=== PATIENT | female | born 2000 | race Two or more races ===

== ENCOUNTER 2024-07-12 14:55 | Outpatient (AMB) | payer MEDICAID, SELFPAY ==
[2024-07-12 15:13] VITALS: BP 105/69; PULSE 84; RESP 16; TEMP 36.7; O2SAT 98; BMI 25.3
--- NOTE | 2024-07-12 15:13 | OBCLNT_ITS ---
Vital Signs 07/12/24 15:13 Height 1.55 m Height Method Stated Weight 60.895 kg Weight Measurement Method Standing Scale BMI 25.3 BP 105/69 Blood Pressure Source Automatic Cuff Blood Pressure Location Left Upper Arm Position Left Lateral Respiration 16 Pulse 84 Pulse Source Monitor Temp 98.1 F Temp Source Oral Pulse Oximetry (%) 98 Oxygen Delivery Method Room Air Allergies/Home Meds Allergies & Medications Allergies No Known Allergies Allergy (Verified 07/12/24 15:15) Medication Reconciliation No Known Home Medications 07/12/24 [History Confirmed 07/12/24] Intake Visit Data Collection New Patient or Established: Established Patient (seen at [facility] within 3 years) Reason for Visit:: care Seen by Clinical Staff ONLY (RN/MA): No Production Superintendent Required: No Do You Feel Safe at Home: Yes Authorities Contacted: N/A PCP or OBGYN visit in last 3 months: Yes Hx Now: Yes Are you currently on any form of Control: No Last menstrual period: 03/23/24 Pain Present Currently: No Pain Scale Used: Styles-Quispe/Numerical Pain scale:: 0 Smoking Status Smoking Status: Never smoker Questionnaires Covid-19 Vaccine Questionnaire Has patient been vacinated for Covid-19 Have you been vacinated for Covid-19: No PHQ-9 PHQ-2 Over the last 2 weeks, how often have you been bothered by any of the following problems? 1. Little interest or pleasure in doing things: not at all 2. Feeling down, depressed, or hopeless: not at all Total score: 0 PHQ-9 3. Trouble falling or staying asleep, or sleeping too much: Not at all 4. Feeling tired or having little energy: Not at all 5. Poor appetite or overeating: Not at all 6. Feeling bad about yourself - or that you are a failure or have let yourself or your family down: Not at all 7. Trouble concentrating on things, such as reading the newspaper or watching television: Not at all 8. Moving or speaking so slowly that other people could have noticed? - Or the opposite - being so fidgety or restless that you have been moving around a lot more than usual: not at all 9. Thoughts that you would be better off or of hurting yourself in some way: Not at all Total score: 0 Source: Developed by Drs. Tylor Pitt, Brigitte Schaeffer, Leonides Norris and colleagues, with an educational glenn from [employer]. Depression screen completed yes Social History Living Situation History Marital Status: Single Lives With: Family Housing: House Housing Other:: Pt not working this pregnanxy. FOB named Jas is a electronics mechanic Tobacco History Smoking Status: Never smoker Second Hand Smoke Exposure: No Alcohol History Alcohol Intake: Never Substance Use History Substance Use: no Domestic Abuse History Do You Feel Safe at Home: Yes Past Medical History Past Medical History Have you ever been diagnosed with any of the following: Neurological Problems Meningitis: No Seizures: No Guillain-Hamlin Syndrome: No Migraine: No Cardiology Problems Cardiac Arrhythmia: No Heart Murmur: No Edema: No Hypertension: No Respiratory Problems Chronic Obstructive Pulmonary Disease (COPD): No Asthma: Yes (todays visit) Bronchitis: Yes (admitted to the hospital x 4 days last year. Possible valley fever.) Pneumonia: No Sleep Apnea: No CPAP Dependent: No Stomache/Intestinal Problems Gall Bladder Disease: No Irritable Bowel: No Gastroesophageal Reflux Disease: No Obesity: No Genital/Urinary Problems Renal Disease: No Kidney Stones: No Reproductive Problems Breast Cancer: No Endometriosis: No Fibroids: No Genital Herpes: No Gonorrhea: No Pelvic Inflammatory Disease: No Polycystic Ovarian Syndrome: No Previous Pregnancies: No Syphilis: No Musculoskeletal Problems Arthritis: No Rheumatoid Arthritis: No Degenerative Disk Disease: No Scoliosis: No Carpal Tunnel Syndrome: No Fibromyalgia: No Endocrine Problems Diabetes Mellitus Type 2: No Hyperthyroidism: No Hypothyroidism: No Systemic Lupus Erythematosus: No Blood Problems Anemia: No Psychologic Problems Depression: No Anxiety: No Attention Deficit Hyperactivity Disorder: No Other Problems Hospitalization: Yes (four days for bronchitis) Autoimmune Disease: No Blood Transfusions: No Anesthesia Reactions: No History of Present Illness HPI Narrative Pt is a 24 y/o at 16 weeks by LMP presents to establish care, She had PNC labs done at [facility] OB Initial Visit Menstrual History Menstrual reliability: definite Flow: normal Menstrual regularity: regular Monthly: Yes Age at menarche: 11 On control pills at conception: No Date of positive home test: 05/02/24 Associated symptoms (LMP): Reports nausea, vomiting, fatigue and irritability OB History : 1 Para: 0 # of Living Children: 0 Infection History & Risk Evaluation History of STDs: none Patient or partner has history of Genital Herpes: No Varicella/chicken pox status: immunized Genetic Screening & History Genetic Screening/Teratology Counseling - Includes patient, baby's father, or anyone in either family with: 1. Patient's age 35 years or older as of estimated date of delivery: No 2. Thalassemia (Yakut, Scottish, Mediterranean, or Background); MCV less than 80: No 3. Neural Tube Defect (Meningomyelocele, Spina Bifida, or Anencephaly): No 4. Congenital Heart Defect: No 5. Down Syndrome: No 6. Conrado-Sachs (Ashkenazi Sabianist, Cajun, Slovenian Delta): No 7. Danii Disease (Ashkenazi Sabianist): No 8. Familial Dysautonomia (Ashkenazi Sabianist): No 9. Sickle Cell Disease or Trait (): No 10. Hemophilia or other blood disorders: No 11. Muscular Dystrophy: No 12. Cystic Fibrosis: No 13. Guadalupe's Chorea: No 14. Mental Retardation/Autism: No 15. Other inherited genetic or chromosomal disorder: No 16. Maternal Metabolic Disorder (EG,TYPE 1 Diabetes, PKU): No 17. Patient or baby's father had a child with defects not listed above: No 18. Recurrent loss or a stillbirth: No 19. Medications (including supplements, vitamins, herbs or otc drugs)/illicit/recreational drugs/alcohol since last menstrual period: No 20. Any other: No Infection History 1. Live with someone with TB or exposed to TB: No 2. Rash or viral illness since last menstrual period: No 3. Hepatitis B,C: No Other (see comments) Source: [employer] OB Flowsheet OB Flowsheet Initial Weight: Not Recorded Date -?-?-?-?-?-?-?-?-?-?-?-?- EGA Weight Edema CTX Effacement BP Fundal ht Pres Dilation Effacement Station Visit Note Alb Glu FHR Mov 07/12/24 -?-?-?-?-?-?-?-?-?-?-?-?- 15w 5d 60.895 kg 105/69 140 active Review of Systems Constitutional Constitutional: Reports system reviewed and no additional complaints, except as documented, Reports fatigue and Reports malaise Gastrointestinal Gastrointestinal: Reports nausea and Reports vomiting Psychiatric Psychiatric: Reports irritability Endocrine Endocrine: Reports fatigue Exam General Limitations: no limitations General Appearance: alert, in no apparent distress, comfortable, cooperative, healthy appearing, well developed and well groomed Head Head exam: atraumatic, normocephalic and normal inspection Neck Neck exam: Present normal inspection, full ROM and trachea midline Chest Chest inspection: Present normal inspection and symmetric chest wall rise Resp Respiratory exam: Present normal lung sounds bilaterally Card Cardiovascular exam: Present regular rate, normal rhythm and normal heart sounds Abdominal Abdominal exam: Present soft and normal bowel sounds Bimanual exam: Present normal bimanual exam, uterine enlargement (16 week size) and other (adequate pelvic outlet) Exp External exam: Present normal Extremities Extremities exam: Present normal inspection and full ROM Psych Psychiatric exam: Present normal affect and normal mood Skin Skin exam: Present warm, dry, intact and normal color Assessment & Plan Diagnosis / Problem List (1) : Status: Acute Additional Plan Follow Up: 4 Weeks Office Procedures OB Clinic LOC & Office Proc's Nursing/Assessment Patient Status: Established Patient OB Clinic Nursing Assessment: Medication Reconciliation, Update PMH in EMR and Vital Signs OB Clinic Coordination of Care: Complex Care and Chronic Disease 1-5, Consent,records obtained, informed consent, Education Simp Pt/Fam, Lab and Imaging orders and Results/Orders obtained Special Needs: Heart tones Miscellaneous Interventions: Pelvic/Pap Smear Set up Established Patient Charge Established Patient Point Assignment: 145 Established Patient Point Charge: EP Level 4 (120-155) OB Ultrasound OB Ultrasound Indication(s):: dating/viability Ultrasound technique:: transabdominal Embryo/ Assessment 1: Cardiac activity confirmation:: Yes Amniotic fluid assessment:: WNL Head Circumference (cm):: 11 CLINICAL VETERINARIAN: Papsmear Pap Smear Procedure Chaparone in room during procedure?: No Pre-op diagnosis general: , needs annual pap smear Post-op diagnosis procedure note: Same Procedure Notes:: Pap done Papsmear completed: yes
== END 2024-07-12 16:25 | disposition home or self-care (01) ==
LOC: HODSOBC 14:55
PROVIDERS: Supervising Provider Obstetrics & Gynecology; Visit Provider Obstetrics & Gynecology
DX: Z34.02 Encounter for supervision of normal first pregnancy, second trimester (principal); Z3A.15 15 weeks gestation of pregnancy
CPT/HCPCS: 76801; 99214; Q0091; G0463

== ENCOUNTER 2024-08-14 09:54 | Outpatient (AMB) | payer MEDICAID, SELFPAY ==
[2024-08-14 10:26] VITALS: BP 103/66; PULSE 96; RESP 16; TEMP 36.2; O2SAT 99; BMI 26.1
--- NOTE | 2024-08-14 10:26 | AMB.OBVISIT ---
Vital Signs 08/14/24 10:26 Height 1.55 m Height Method Stated Weight 62.823 kg Weight Measurement Method Standing Scale BMI 26.1 BP 103/66 Blood Pressure Source Automatic Cuff Blood Pressure Location Left Upper Arm Position Sitting Respiration 16 Pulse 96 Pulse Source Monitor Temp 97.2 F Temp Source Oral Pulse Oximetry (%) 99 Oxygen Delivery Method Room Air Allergies/Home Meds Allergies & Medications Allergies No Known Allergies Allergy (Verified 08/14/24 10:29) Medication Reconciliation No Known Home Medications 07/12/24 [History Confirmed 08/14/24] Intake Visit Data Collection New Patient or Established: Established Patient (seen at [facility] within 3 years) Reason for Visit:: Return OB visit Seen by Clinical Staff ONLY (RN/MA): No Manager Change Required: No Do You Feel Safe at Home: Yes Authorities Contacted: N/A PCP or OBGYN visit in last 3 months: Yes Date of Last PCP or OBGYN visit: 07/12/24 Hx Now: Yes Are you currently on any form of Control: No Pain Present Currently: No Pain Scale Used: Styles-Quispe/Numerical Pain scale:: 0 Smoking Status Smoking Status: Never smoker Questionnaires Covid-19 Vaccine Questionnaire Has patient been vacinated for Covid-19 Have you been vacinated for Covid-19: Yes PHQ-9 PHQ-2 Over the last 2 weeks, how often have you been bothered by any of the following problems? 1. Little interest or pleasure in doing things: not at all 2. Feeling down, depressed, or hopeless: not at all Total score: 0 PHQ-9 3. Trouble falling or staying asleep, or sleeping too much: Not at all 4. Feeling tired or having little energy: Not at all 5. Poor appetite or overeating: Not at all 6. Feeling bad about yourself - or that you are a failure or have let yourself or your family down: Not at all 7. Trouble concentrating on things, such as reading the newspaper or watching television: Not at all 8. Moving or speaking so slowly that other people could have noticed? - Or the opposite - being so fidgety or restless that you have been moving around a lot more than usual: not at all 9. Thoughts that you would be better off or of hurting yourself in some way: Not at all Total score: 0 If you checked off any problems, how difficult have these problems made it for you to do your work, take care of things at home, or get along with other people?: not difficult at all Source: Developed by Drs. Tylor Pitt, Brigitte Schaeffer, Leonides Norris and colleagues, with an educational glenn from [employer]. Depression screen completed yes Social History Living Situation History Marital Status: Lives With: Family Housing: House Housing Other:: Pt not working this pregnanxy. FOB named Jas is a amusement machine mechanic Tobacco History Smoking Status: Never smoker Second Hand Smoke Exposure: No Alcohol History Alcohol Intake: Never Substance Use History Substance Use: no Domestic Abuse History Do You Feel Safe at Home: Yes Past Medical History Past Medical History Have you ever been diagnosed with any of the following: Neurological Problems Cerebrovascular Accident (CVA): No Transient Ischemic Attacks (TIA): No Meningitis: No Seizures: No Guillain-[place] Syndrome: No Migraine: No Cardiology Problems Myocardial Infarction: No Cardiac Arrhythmia: No Atrial Fibrillation: No Heart Murmur: No Congestive Heart Failure: No Edema: No Hypertension: No Respiratory Problems Chronic Obstructive Pulmonary Disease (COPD): No Asthma: Yes (todays visit) Bronchitis: Yes (admitted to the hospital x 4 days last year. Possible valley fever.) Pneumonia: No Sleep Apnea: No CPAP Dependent: No Stomache/Intestinal Problems Gall Bladder Disease: No Irritable Bowel: No Gastroesophageal Reflux Disease: No Obesity: No Genital/Urinary Problems Renal Disease: No Kidney Stones: No Reproductive Problems Breast Cancer: No Endometriosis: No Fibroids: No Genital Herpes: No Gonorrhea: No Pelvic Inflammatory Disease: No Polycystic Ovarian Syndrome: No Previous Pregnancies: No Syphilis: No Musculoskeletal Problems Muscular Dystrophy: No Myasthenia Gravis: No Marfan's Syndrome: No Bone Cancer: No Arthritis: No Rheumatoid Arthritis: No Degenerative Disk Disease: No Scoliosis: No Carpal Tunnel Syndrome: No Fibromyalgia: No Endocrine Problems Diabetes Mellitus Type 1: No Diabetes Mellitus Type 2: No Hypoglycemia: No Sanford's Syndrome: No [place]'s Disease: No Hyperthyroidism: No Hypothyroidism: No Thyroid Cancer: No Parathyroid Disease: No Pituitary Disease: No Systemic Lupus Erythematosus: No Syndrome of Inappropriate Antidiuretic Hormone: No Adrenal Disease: No Graves' Disease: No Blood Problems Anemia: No Leukemia: No Sickle Cell Disease: No Psychologic Problems Depression: No Anxiety: No Attention Deficit Hyperactivity Disorder: No Other Problems Hospitalization: Yes (four days for bronchitis) Down Syndrome: No Autism: No Developmental Delay: No Cosmetic Surgery: No Shingles: No Falls: No Blood Transfusions: No Blood Transfusion Reaction: No Anesthesia Reactions: No History of Present Illness HPI Narrative The patient is a 24-year-old G1, P0 presents for routine OB visit she is approximately 20 weeks and has no complaints specifically no bleeding no cramping no movement yet. Patient does not work outside the home. Review of Systems Review of Systems Narrative Review of Systems: No nausea no vomiting no movement yet no cramping no bleeding no loss of fluids Visit KEITH Calculator Estimated Delivery Date Method Current WG Current Estimate 12/29/24 Ultrasound #1 20w 3d Other Estimates 12/28/24 LMP (Uncertain) 20w 4d Specific Issue/Plans labs and NIPT results reviewed with the patient's. NIPT normal XX female. Structural survey ultrasound ordered. Initial Weight: Not Recorded Date <del>?</del> EGA Weight Edema CTX Effacement BP Fundal ht Pres Dilation Effacement Station Visit Note Alb Glu FHR Mov 07/12/24 <del>?</del> 15w 5d 60.895 kg 105/69 140 active 08/14/24 <del>?</del> 20w 3d 62.823 kg 103/66 22 135 active Assessment & Plan Diagnosis / Problem List (1) : Status: Acute Qualifiers: Weeks of gestation: 21 weeks Qualified Code(s): Z3A.21 - 21 weeks gestation of Plan: Labs reviewed. NIPT reviewed. Will schedule 20-week anatomy scan. Additional Plan Follow Up: 4 Weeks Office Procedures OB Clinic LOC & Office Proc's Nursing/Assessment Patient Status: Established Patient OB Clinic Nursing Assessment: BP Monitoring, Medication Reconciliation, Update PMH in EMR and Vital Signs OB Clinic Coordination of Care: Consent,records obtained, informed consent, Education Simp Pt/Fam and Staff clarify orders Special Needs: Heart tones Established Patient Charge Established Patient Point Assignment: 105 Established Patient Point Charge: EP Level 3 (80-115)
== END 2024-08-14 11:04 | disposition home or self-care (01) ==
LOC: HODSOBC 09:54
PROVIDERS: Supervising Provider Obstetrics & Gynecology; Visit Provider Obstetrics & Gynecology
DX: Z34.92 Encounter for supervision of normal pregnancy, unspecified, second trimester (principal); Z3A.21 21 weeks gestation of pregnancy
CPT/HCPCS: 99213; G0463

== ENCOUNTER 2024-09-16 10:43 | Outpatient (AMB) | payer MEDICAID, SELFPAY ==
[2024-09-16 11:25] VITALS: BP 108/68; PULSE 106; RESP 18; TEMP 36.8; O2SAT 99; BMI 27.1
--- NOTE | 2024-09-16 11:25 | OBCLNT_ITS ---
Vital Signs 09/16/24 11:25 Height 1.55 m Height Method Stated Weight 65.034 kg Weight Measurement Method Standing Scale BMI 27.1 BP 108/68 Blood Pressure Source Automatic Cuff Blood Pressure Location Left Upper Arm Position Sitting Respiration 18 Pulse 106 H Pulse Source Monitor Temp 98.2 F Temp Source Oral Pulse Oximetry (%) 99 Oxygen Delivery Method Room Air Allergies/Home Meds Allergies & Medications Allergies No Known Allergies Allergy (Verified 09/16/24 11:26) Medication Reconciliation No Known Home Medications 07/12/24 [History Confirmed 09/16/24] Intake Visit Data Collection New Patient or Established: Established Patient (seen at [facility] within 3 years) Reason for Visit:: 25 weeks , visit Seen by Clinical Staff ONLY (RN/MA): No Tankman Required: No Do You Feel Safe at Home: Yes Authorities Contacted: N/A PCP or OBGYN visit in last 3 months: No Hx Now: Yes Are you currently on any form of Control: No Pain Present Currently: No Pain Scale Used: Styles-Quispe/Numerical Pain scale:: 0 Smoking Status Smoking Status: Never smoker Questionnaires Covid-19 Vaccine Questionnaire Has patient been vacinated for Covid-19 Have you been vacinated for Covid-19: Yes PHQ-9 PHQ-2 Over the last 2 weeks, how often have you been bothered by any of the following problems? 1. Little interest or pleasure in doing things: not at all 2. Feeling down, depressed, or hopeless: not at all Total score: 0 PHQ-9 3. Trouble falling or staying asleep, or sleeping too much: Not at all 4. Feeling tired or having little energy: Not at all 5. Poor appetite or overeating: Not at all 6. Feeling bad about yourself - or that you are a failure or have let yourself or your family down: Not at all 7. Trouble concentrating on things, such as reading the newspaper or watching television: Not at all 8. Moving or speaking so slowly that other people could have noticed? - Or the opposite - being so fidgety or restless that you have been moving around a lot more than usual: not at all 9. Thoughts that you would be better off or of hurting yourself in some way: Not at all Total score: 0 If you checked off any problems, how difficult have these problems made it for you to do your work, take care of things at home, or get along with other people?: not difficult at all Source: Developed by Drs. Tylor Pitt, Brigitte Schaeffer, Leonides Norris and colleagues, with an educational glenn from [employer]. Depression screen completed yes Social History Living Situation History Lives With: Family Housing: House Housing Other:: Pt not working this pregnanxy. FOB named Jas is a jewelry mechanic Tobacco History Smoking Status: Never smoker Second Hand Smoke Exposure: No Alcohol History Alcohol Intake: Never Substance Use History Substance Use: no Domestic Abuse History Do You Feel Safe at Home: Yes Past Medical History Past Medical History Have you ever been diagnosed with any of the following: Neurological Problems Cerebrovascular Accident (CVA): No Transient Ischemic Attacks (TIA): No Meningitis: No Seizures: No Guillain-[place] Syndrome: No Migraine: No Cardiology Problems Myocardial Infarction: No Cardiac Arrhythmia: No Atrial Fibrillation: No Heart Murmur: No Congestive Heart Failure: No Edema: No Hypertension: No Respiratory Problems Chronic Obstructive Pulmonary Disease (COPD): No Asthma: Yes (todays visit) Bronchitis: Yes (admitted to the hospital x 4 days last year. Possible valley fever.) Pneumonia: No Sleep Apnea: No CPAP Dependent: No Stomache/Intestinal Problems Gall Bladder Disease: No Irritable Bowel: No Gastroesophageal Reflux Disease: No Obesity: No Genital/Urinary Problems Renal Disease: No Kidney Stones: No Reproductive Problems Breast Cancer: No Endometriosis: No Fibroids: No Genital Herpes: No Gonorrhea: No Pelvic Inflammatory Disease: No Polycystic Ovarian Syndrome: No Previous Pregnancies: No Syphilis: No Musculoskeletal Problems Muscular Dystrophy: No Myasthenia Gravis: No Marfan's Syndrome: No Bone Cancer: No Arthritis: No Rheumatoid Arthritis: No Degenerative Disk Disease: No Scoliosis: No Carpal Tunnel Syndrome: No Fibromyalgia: No Endocrine Problems Diabetes Mellitus Type 1: No Diabetes Mellitus Type 2: No Hypoglycemia: No Lauri's Syndrome: No Torrance's Disease: No Hyperthyroidism: No Hypothyroidism: No Thyroid Cancer: No Parathyroid Disease: No Pituitary Disease: No Systemic Lupus Erythematosus: No Syndrome of Inappropriate Antidiuretic Hormone: No Adrenal Disease: No Graves' Disease: No Blood Problems Anemia: No Leukemia: No Sickle Cell Disease: No Psychologic Problems Depression: No Anxiety: No Attention Deficit Hyperactivity Disorder: No Other Problems Hospitalization: Yes (four days for bronchitis) Down Syndrome: No Autism: No Developmental Delay: No Cosmetic Surgery: No Shingles: No Falls: No Blood Transfusions: No Blood Transfusion Reaction: No Anesthesia Reactions: No Visit OB Visit Log OB Flowsheet Initial Weight: Not Recorded Date -?-?-?-?-?-?-?-?-?-?-?-?- EGA Weight Edema CTX Effacement BP Fundal ht Pres Dilation Effacement Station Visit Note Alb Glu FHR Mov 07/12/24 -?-?-?-?-?-?-?-?-?-?-?-?- 15w 5d 60.895 kg 105/69 140 active 08/14/24 -?-?-?-?-?-?-?-?-?-?-?-?- 20w 3d 62.823 kg 103/66 22 135 active 09/16/24 -?-?-?-?-?-?-?-?-?-?-?-?- 25w 1d 65.034 kg 108/68 25 150 active KEITH Calculator Estimated Delivery Date Method Current WG Current Estimate 12/29/24 Ultrasound #1 25w 3d Other Estimates 12/28/24 LMP (Uncertain) 25w 4d Expected Delivery Route/Plan Anticipate Specific Issue/Plans labs and NIPT results reviewed with the patient. NIPT normal XX female. Structural survey ultrasound ordered. Notes Visit Date: 09/16/24 Last Updated by: Valentina Hassan (OB Clinic)MD Pt needs one hour GCT Assessment & Plan Diagnosis / Problem List (1) : Status: Acute Qualifiers: Weeks of gestation: 25 weeks Qualified Code(s): Z3A.25 - 25 weeks gestation of Assessment and Plan: Need PNC records, Structural survey on chart. Care started at [facility] and transferred here at 16 weeks. Office Procedures OB Clinic LOC & Office Proc's Nursing/Assessment Patient Status: Established Patient OB Clinic Nursing Assessment: BP Monitoring, Medication Reconciliation, Update PMH in EMR and Vital Signs OB Clinic Coordination of Care: Consent,records obtained, informed consent, Education Simp Pt/Fam and Staff clarify orders Special Needs: Heart tones Established Patient Charge Established Patient Point Assignment: 105 Established Patient Point Charge: EP Level 3 (80-115)
== END 2024-09-16 12:14 | disposition home or self-care (01) ==
LOC: HODSOBC 10:43
PROVIDERS: Supervising Provider Obstetrics & Gynecology; Visit Provider Obstetrics & Gynecology
DX: Z34.02 Encounter for supervision of normal first pregnancy, second trimester (principal); Z3A.25 25 weeks gestation of pregnancy
CPT/HCPCS: 99213; G0463

== ENCOUNTER 2024-10-16 09:51 | Outpatient (AMB) | payer MEDICAID, SELFPAY ==
[2024-10-16 10:08] VITALS: BP 103/64; PULSE 94; RESP 18; TEMP 36.6; O2SAT 98; BMI 27.6
--- NOTE | 2024-10-16 10:08 | OBCLNT_ITS ---
Vital Signs 10/16/24 10:08 Height 1.55 m Height Method Stated Weight 66.281 kg Weight Measurement Method Standing Scale BMI 27.6 BP 103/64 Blood Pressure Source Automatic Cuff Blood Pressure Location Right Upper Arm Position Sitting Respiration 18 Pulse 94 Pulse Source Monitor Temp 97.8 F Temp Source Temporal Artery Scan Pulse Oximetry (%) 98 Oxygen Delivery Method Room Air Allergies/Home Meds Allergies & Medications Allergies No Known Allergies Allergy (Verified 10/16/24 10:09) Medication Reconciliation vits no.126-ferrous fum 28 mg iron-folic acid 800 mcg tablet (Classic ) tab PO 10/16/24 [History Confirmed 10/16/24] Intake Visit Data Collection New Patient or Established: Established Patient (seen at [facility] within 3 years) Reason for Visit:: obc Do You Feel Safe at Home: Yes Authorities Contacted: N/A PCP or OBGYN visit in last 3 months: Yes Smoking Status Smoking Status: Never smoker Questionnaires Covid-19 Vaccine Questionnaire Has patient been vacinated for Covid-19 Have you been vacinated for Covid-19: Yes PHQ-9 PHQ-2 Over the last 2 weeks, how often have you been bothered by any of the following problems? 1. Little interest or pleasure in doing things: not at all 2. Feeling down, depressed, or hopeless: not at all Total score: 0 PHQ-9 8. Moving or speaking so slowly that other people could have noticed? - Or the opposite - being so fidgety or restless that you have been moving around a lot more than usual: not at all Source: Developed by Drs. Tylor Pitt, Brigitte Schaeffer, Leonides Norris and colleagues, with an educational glenn from [employer]. Depression screen completed yes Social History Living Situation History Lives With: Family Housing: House Housing Other:: Pt not working this pregnanxy. 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 Past Medical History: No Hx Hypothyroidism, No Hx Hyperthyroidism, No Hx Breast Cancer, No Hx Cardiac Disorders, No Hx Hypertension, No Hx Anemia, No Hx Renal Disease, No Hx Diabetes Mellitus Type 1, No Hx Diabetes Mellitus Type 2 and No Hx Polycystic Ovarian Syndrome Care OB Visit Log OB Flowsheet Initial Weight: Not Recorded Date -?-?-?-?-?-?-?-?-?-?-?-?- EGA Weight BP Alb Glu CTX Pres Fundal ht FHR Mov Dilation Station Effacement Hx Notes Visit Note 07/12/24 -?-?-?-?-?-?-?-?-?-?-?-?- 15w 5d 60.895 kg 105/69 140 active 08/14/24 -?-?-?-?-?-?-?-?-?-?-?-?- 20w 3d 62.823 kg 103/66 22 135 active 09/16/24 -?-?-?-?-?-?-?-?-?-?-?-?- 25w 1d 65.034 kg 108/68 25 150 active 10/16/24 -?-?-?-?-?-?-?-?-?-?-?-?- 29w 3d 66.281 kg 103/64 30 135 active +FM, No UCs, NO LOF KEITH Calculator Estimated Delivery Date Method Current WG Current Estimate 12/29/24 Ultrasound #1 29w 3d Other Estimates 12/28/24 LMP (Uncertain) 29w 4d Comments: Blood type O+ /antibody negative/ rubella immune/ RPR nonreactive/ hep B surface antigen negative /hep C negative/NIPT 46XX /urine culture negative /GC negative/ Chlamydia negative Ordered structural survey 10/16/2024 this is had to be authorized from last visit. Expected Delivery Route/Plan Anticipate Specific Issue/Plans labs and NIPT results reviewed with the patient. NIPT normal XX female. Structural survey ultrasound ordered. Notes Visit Date: 10/16/24 Last Updated by: Valentina Hassan ([facility] Clinic)MD GCT 105 Visit Date: 09/16/24 Last Updated by: Valentina Hassan ([facility])MD Pt needs one hour GCT Office Procedures OB Clinic LOC & Office Proc's Nursing/Assessment Patient Status: Established Patient OB Clinic Nursing Assessment: BP Monitoring, Medication Reconciliation, Update PMH in EMR and Vital Signs OB Clinic Coordination of Care: Complex Care and Chronic Disease 1-5, Education Complex Pt/Fam and Staff clarify orders Special Needs: Heart tones Established Patient Charge Established Patient Point Assignment: 130 Established Patient Point Charge: EP Level 4 (120-155) Assessment & Plan Diagnosis / Problem List (1) : Status: Acute Qualifiers: Weeks of gestation: 30 weeks Qualified Code(s): Z3A.30 - 30 weeks gestation of Assessment and Plan: Up-to-date on all labs. Glucose normal. Structural survey ordered.
== END 2024-10-16 10:57 | disposition home or self-care (01) ==
LOC: HODSOBC 09:51
PROVIDERS: Supervising Provider Obstetrics & Gynecology; Visit Provider Obstetrics & Gynecology
DX: Z34.93 Encounter for supervision of normal pregnancy, unspecified, third trimester (principal); Z3A.29 29 weeks gestation of pregnancy
CPT/HCPCS: 99214; G0463

== ENCOUNTER 2024-10-30 14:27 | Outpatient (AMB) | payer MEDICAID, SELFPAY ==
[2024-10-30 14:46] VITALS: BP 108/67; PULSE 91; RESP 17; TEMP 36.6; O2SAT 98; BMI 27.6
--- NOTE | 2024-10-30 14:46 | OBCLNT_ITS ---
Vital Signs 10/30/24 14:46 Height 1.55 m Height Method Stated Weight 66.338 kg Weight Measurement Method Standing Scale BMI 27.6 BP 108/67 Blood Pressure Source Automatic Cuff Blood Pressure Location Right Upper Arm Position Sitting Respiration 17 Pulse 91 Pulse Source Monitor Temp 97.8 F Temp Source Temporal Artery Scan Pulse Oximetry (%) 98 Oxygen Delivery Method Room Air Allergies/Home Meds Allergies & Medications Allergies No Known Allergies Allergy (Verified 10/30/24 14:49) Medication Reconciliation vits no.126-ferrous fum 28 mg iron-folic acid 800 mcg tablet (Classic ) tab PO 10/16/24 [History Confirmed 10/30/24] magnesium 250 mg tablet 250 mg PO QHS #30 tabs 10/30/24 [Rx] Intake Visit Data Collection New Patient or Established: Established Patient (seen at [facility] within 3 years) 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 1. Little interest or pleasure in doing things: not at all 2. Feeling down, depressed, or hopeless: not at all Total score: 0 PHQ-9 3. Trouble falling or staying asleep, or sleeping too much: Not at all 4. Feeling tired or having little energy: Not at all 5. Poor appetite or overeating: Not at all 6. Feeling bad about yourself - or that you are a failure or have let yourself or your family down: Not at all 7. Trouble concentrating on things, such as reading the newspaper or watching television: Not at all 8. Moving or speaking so slowly that other people could have noticed? - Or the opposite - being so fidgety or restless that you have been moving around a lot more than usual: not at all 9. Thoughts that you would be better off or of hurting yourself in some way: Not at all Total score: 0 If you checked off any problems, how difficult have these problems made it for you to do your work, take care of things at home, or get along with other people?: not difficult at all Source: Developed by Drs. Tylor Pitt, Brigitte Schaeffer, Leonides Norris and colleagues, with an educational glenn from [employer]. Depression screen completed yes Social History Living Situation History Lives With: Family Housing: House Housing Other:: Pt not working this pregnanxy. 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-?-?-?-?-?- 20w 3d 62.823 kg 103/66 22 135 active 09/16/24 -?-?-?-?-?-?-?-?-?-?-?-?- 25w 1d 65.034 kg 108/68 25 150 active 10/16/24 -?-?-?-?-?-?-?-?-?-?-?-?- 29w 3d 66.281 kg 103/64 30 135 active +FM, No UCs, NO LOF 10/30/24 -?-?-?-?-?-?-?-?-?-?-?-?- 31w 3d 66.338 kg 108/67 32 156 active Patient reports good movement no loss of fluids no vaginal bleeding. She reports leg cramps at night. We did discuss magnesium. KEITH Calculator Estimated Delivery Date Method Current WG Current Estimate 12/29/24 Ultrasound #1 31w 3d Other Estimates 12/28/24 LMP (Uncertain) 31w 4d Comments: LMP 03/23/2024 care started at [facility]. Records on the chart. Blood type O+ /antibody negative /hepatitis B surface antigen negative /GC chlamydia negative/ RPR nonreactive /hepatitis C-negative/HIV negative drug screen negative Expected Delivery Route/Plan Anticipate Specific Issue/Plans labs and NIPT results reviewed with the patient. NIPT normal XX female. Structural survey ultrasound ordered. Notes Visit Date: 10/16/24 Last Updated by: Valentina Hassan ([facility])MD GCT 105 Visit Date: 09/16/24 Last Updated by: Valentina Hassan ([facility])MD Pt needs one hour GCT Office Procedures OB Clinic LOC & Office Proc's Nursing/Assessment Patient Status: Established Patient OB Clinic Nursing Assessment: Medication Reconciliation, Update PMH in EMR and Vital Signs OB Clinic Coordination of Care: Complex Care and Chronic Disease 1-5, Consent,records obtained, informed consent, Education Simp Pt/Fam and Staff clarify orders Special Needs: Heart tones Established Patient Charge Established Patient Point Assignment: 115 Established Patient Point Charge: EP Level 3 (80-115) Assessment & Plan Diagnosis / Problem List (1) : Status: Acute Qualifiers: Weeks of gestation: 31 weeks Qualified Code(s): Z3A.31 - 31 weeks gestation of Assessment and Plan: For leg cramps will order magnesium. Follow-up in 2 weeks.
== END 2024-10-30 15:21 | disposition home or self-care (01) ==
LOC: HODSOBC 14:27
PROVIDERS: Supervising Provider Obstetrics & Gynecology; Visit Provider Obstetrics & Gynecology
DX: Z34.93 Encounter for supervision of normal pregnancy, unspecified, third trimester (principal); Z3A.31 31 weeks gestation of pregnancy
CPT/HCPCS: 99213; G0463

== ENCOUNTER 2024-11-13 13:09 | Outpatient (AMB) | payer MEDICAID, SELFPAY ==
[2024-11-13 13:23] VITALS: BP 105/67; PULSE 92; RESP 17; TEMP 36.8; O2SAT 98; BMI 27.6
--- NOTE | 2024-11-13 13:23 | OBCLNT_ITS ---
Vital Signs 11/13/24 13:23 Height 1.55 m Height Method Stated Weight 66.338 kg Weight Measurement Method Standing Scale BMI 27.6 BP 105/67 Blood Pressure Source Automatic Cuff Blood Pressure Location Right Upper Arm Position Sitting Respiration 17 Pulse 92 Pulse Source Monitor Temp 98.2 F Temp Source Temporal Artery Scan Pulse Oximetry (%) 98 Oxygen Delivery Method Room Air Allergies/Home Meds Allergies & Medications Allergies No Known Allergies Allergy (Verified 11/13/24 16:36) Medication Reconciliation vits no.126-ferrous fum 28 mg iron-folic acid 800 mcg tablet (Classic ) tab PO 10/16/24 [History Confirmed 11/13/24] magnesium 250 mg tablet 250 mg PO QHS #30 tabs 10/30/24 [Rx Confirmed 11/13/24] Intake Visit Data Collection New Patient or Established: Established Patient (seen at [facility] within 3 years) Reason for Visit:: obc Do You Feel Safe at Home: Yes Authorities Contacted: N/A PCP or OBGYN visit in last 3 months: Yes Smoking Status Smoking Status: Never smoker Questionnaires Covid-19 Vaccine Questionnaire Has patient been vacinated for Covid-19 Have you been vacinated for Covid-19: No PHQ-9 PHQ-2 Over the last 2 weeks, how often have you been bothered by any of the following problems? 1. Little interest or pleasure in doing things: not at all 2. Feeling down, depressed, or hopeless: not at all Total score: 0 PHQ-9 3. Trouble falling or staying asleep, or sleeping too much: Not at all 4. Feeling tired or having little energy: Not at all 5. Poor appetite or overeating: Not at all 6. Feeling bad about yourself - or that you are a failure or have let yourself or your family down: Not at all 7. Trouble concentrating on things, such as reading the newspaper or watching television: Not at all 8. Moving or speaking so slowly that other people could have noticed? - Or the opposite - being so fidgety or restless that you have been moving around a lot more than usual: not at all 9. Thoughts that you would be better off or of hurting yourself in some way: Not at all Total score: 0 If you checked off any problems, how difficult have these problems made it for you to do your work, take care of things at home, or get along with other people?: not difficult at all Source: Developed by Drs. Tylor Pitt, Brigitte Schaeffer, Leonides Norris and colleagues, with an educational glenn from [employer]. Depression screen completed yes Social History Living Situation History Marital Status: Life Partner Lives With: Family Housing: House Housing Other:: Pt not working this pregnanxy. 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 Past Medical History: No Hx Hypothyroidism, No Hx Hyperthyroidism, No Hx Breast Cancer, No Hx Cardiac Disorders, No Hx Hypertension, No Hx Anemia, No Hx Renal Disease, No Hx Diabetes Mellitus Type 1, No Hx Diabetes Mellitus Type 2 and No Hx Polycystic Ovarian Syndrome Care OB Visit Log OB Flowsheet Initial Weight: Not Recorded Date -?-?-?-?-?-?-?-?-?-?-?-?- EGA Weight BP Alb Glu CTX Pres Fundal ht FHR Mov Dilation Station Effacement Hx Notes Visit Note 07/12/24 -?-?-?-?-?-?-?-?-?-?-?-?- 15w 5d 60.895 kg 105/69 140 active 08/14/24 -?-?-?-?-?-?-?-?-?-?-?-?- 20w 3d 62.823 kg 103/66 22 135 active 09/16/24 -?-?-?-?-?-?-?-?-?-?-?-?- 25w 1d 65.034 kg 108/68 25 150 active 10/16/24 -?-?-?-?-?-?-?-?-?-?-?-?- 29w 3d 66.281 kg 103/64 30 135 active +FM, No UCs, NO LOF 10/30/24 -?-?-?-?-?-?-?-?-?-?-?-?- 31w 3d 66.338 kg 108/67 32 156 active Patient reports good movement no loss of fluids no vaginal bleeding. She reports leg cramps at night. We did discuss magnesium. 11/13/24 -?-?-?-?-?-?-?-?-?-?-?-?- 33w 3d 66.338 kg 105/67 absent cephalic 33 136 active fetus active, no PTL complaints. denies ptl s/s TDAP today, discuss FKC bid, discuss PTL precaution, hydrate, KEITH Calculator Estimated Delivery Date Method Current WG Current Estimate 12/29/24 Ultrasound #1 33w 3d Other Estimates 12/28/24 LMP (Uncertain) 33w 4d Expected Delivery Route/Plan Anticipate Specific Issue/Plans labs and NIPT results reviewed with the patient. NIPT normal XX female. Structural survey ultrasound ordered. Notes Visit Date: 11/13/24 Last Updated by: Tamia Burleson CNM 24 yo . LMP 03/23/24. EDC 12/28/25. O+,abs-, rpr;;nr, rub imm, HBSAG-,hiv-,GC/CT-. NIPT-, 1 hr gtt normal Visit Date: 10/16/24 Last Updated by: Valentina Hassan ([facility])MD GCT 105 Visit Date: 09/16/24 Last Updated by: Valentina Hassan ([facility])MD Pt needs one hour GCT Office Procedures OB Clinic LOC & Office Proc's Nursing/Assessment Patient Status: Established Patient OB Clinic Nursing Assessment: Update PMH in EMR and Vital Signs OB Clinic Coordination of Care: Education Complex Pt/Fam, Consent,records obtained, informed consent, Lab and Imaging orders and Staff clarify orders Special Needs: Heart tones Established Patient Charge Established Patient Point Assignment: 105 Established Patient Point Charge: EP Level 3 (80-115) Injection/Vaccine Admin Admin 1st Vaccine: Yes Immunizations diphth,pertus(acell),tetanus 2.5 Lf unit-8 mcg-5 Lf/0.5mL IM syringe Performing Provider: Tamia Burleson CNM Performing Location: [facility] Administered by: Berna Raza MA on 11/13/24 16:23 Dose Route Admin Location Dispensed Lot Number Expiration Date [facility] 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 RTC 2 week obc Additional Plan Follow Up: 2 Weeks (OBC)
== END 2024-11-13 14:40 | disposition home or self-care (01) ==
LOC: HODSOBC 13:09
PROVIDERS: Supervising Provider Advanced Practice Midwife; Visit Provider Advanced Practice Midwife
DX: Z34.03 Encounter for supervision of normal first pregnancy, third trimester (principal); Z3A.33 33 weeks gestation of pregnancy; Z23 Encounter for immunization
CPT/HCPCS: 90471; 90715; 99213; G0463

== ENCOUNTER 2024-11-27 15:05 | Outpatient (AMB) | payer MEDICAID, SELFPAY ==
[2024-11-27 15:14] VITALS: BP 107/72; PULSE 100; RESP 17; TEMP 36.4; O2SAT 98; BMI 27.8
--- NOTE | 2024-11-27 15:14 | OBCLNT_ITS ---
Vital Signs 11/27/24 15:14 Height 1.55 m Height Method Measured Weight 66.905 kg Weight Measurement Method Standing Scale BMI 27.8 BP 107/72 Blood Pressure Source Automatic Cuff Blood Pressure Location Right Upper Arm Position Sitting Respiration 17 Pulse 100 Pulse Source Monitor Temp 97.6 F Temp Source Temporal Artery Scan Pulse Oximetry (%) 98 Oxygen Delivery Method Room Air Allergies/Home Meds Allergies & Medications Allergies No Known Allergies Allergy (Verified 11/27/24 15:15) Medication Reconciliation vits no.126-ferrous fum 28 mg iron-folic acid 800 mcg tablet (Classic ) tab PO 10/16/24 [History Confirmed 11/27/24] magnesium 250 mg tablet 250 mg PO QHS #30 tabs 10/30/24 [Rx Confirmed 11/27/24] Intake Visit Data Collection New Patient or Established: Established Patient (seen at [facility] within 3 years) Reason for Visit:: OBC Consent obtained for Telemed Visit: No Seen by Clinical Staff ONLY (RN/MA): No Barrel Loader And Cleaner Required: No Do You Feel Safe at Home: Yes Authorities Contacted: N/A PCP or OBGYN visit in last 3 months: Yes Date of Last PCP or OBGYN visit: 11/13/24 Hx Now: Yes Are you currently on any form of Control: No Pain Present Currently: No Pain Scale Used: Styles-Quispe/Numerical Pain scale:: 0 Smoking Status Smoking Status: Never smoker Questionnaires Covid-19 Vaccine Questionnaire Has patient been vacinated for Covid-19 Have you been vacinated for Covid-19: Yes PHQ-9 PHQ-2 Over the last 2 weeks, how often have you been bothered by any of the following problems? 1. Little interest or pleasure in doing things: not at all 2. Feeling down, depressed, or hopeless: not at all Total score: 0 PHQ-9 3. Trouble falling or staying asleep, or sleeping too much: Not at all 4. Feeling tired or having little energy: Not at all 5. Poor appetite or overeating: Not at all 6. Feeling bad about yourself - or that you are a failure or have let yourself or your family down: Not at all 7. Trouble concentrating on things, such as reading the newspaper or watching television: Not at all 8. Moving or speaking so slowly that other people could have noticed? - Or the opposite - being so fidgety or restless that you have been moving around a lot more than usual: not at all 9. Thoughts that you would be better off or of hurting yourself in some way: Not at all Total score: 0 If you checked off any problems, how difficult have these problems made it for you to do your work, take care of things at home, or get along with other people?: not difficult at all Source: Developed by Drs. Tylor Pitt, Brigitte Schaeffer, Leonides Norris and colleagues, with an educational glenn from [employer]. Depression screen completed yes Social History Living Situation History Lives With: Family Housing: House Housing Other:: Pt not working this pregnanxy. 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 Patient reports occasional cramps (Stamps Ibanez contractions). No leaking, bleeding, or other symptoms. Reports good movement. Denies MYERS, VC, and epigastric pain. - Kendal Alfonso is a 24-year-old at 35 weeks and 3 days gestation presenting for routine care. - Patient reports experiencing occasional cramps - Described as coming and going (likely Rui Ibanez contractions) - Denies persistent contractions - Reports normal movement - Denies any vaginal leaking or bleeding - No other symptoms or concerns reported Care OB Visit Log OB Flowsheet Initial Weight: Not Recorded Date -?-?-?-?-?-?-?-?-?-?-?-?- EGA Weight BP Alb Glu CTX Pres Fundal ht FHR Mov Dilation Station Effacement Hx Notes Visit Note 07/12/24 -?-?-?-?-?-?-?-?-?-?-?-?- 15w 5d 60.895 kg 105/69 140 active 08/14/24 -?-?-?-?-?-?-?-?-?-?-?-?- 20w 3d 62.823 kg 103/66 22 135 active 09/16/24 -?-?-?-?-?-?-?-?-?-?-?-?- 25w 1d 65.034 kg 108/68 25 150 active 10/16/24 -?-?-?-?-?-?-?-?-?-?-?-?- 29w 3d 66.281 kg 103/64 30 135 active +FM, No UCs, NO LOF 10/30/24 -?-?-?-?-?-?-?-?-?-?-?-?- 31w 3d 66.338 kg 108/67 32 156 active Patient reports good movement no loss of fluids no vaginal bleeding. She reports leg cramps at night. We did discuss magnesium. 11/13/24 -?-?-?-?-?-?-?-?-?-?-?-?- 33w 3d 66.338 kg 105/67 absent cephalic 33 136 active fetus active, no PTL complaints. denies ptl s/s TDAP today, discuss FKC bid, discuss PTL precaution, hydrate, 11/27/24 -?-?-?-?-?-?-?-?-?-?-?-?- 35w 3d 66.905 kg 107/72 occasional cephalic 35 147 active No CTX/LOF/VB, reports occasional cramps consistent with [place] Ibanez, good FM. FHR 147, cephalic presentation. Plan: fol low-up in 1 week with Tamia, schedule GBS swab at 36 weeks, weekly visits to continue, future appt with Dr. Hassan in ~2 weeks. KEITH Calculator Estimated Delivery Date Method Current WG Current Estimate 12/29/24 Ultrasound #1 35w 3d Other Estimates 12/28/24 LMP (Uncertain) 35w 4d Expected Delivery Route/Plan Anticipate Specific Issue/Plans labs and NIPT results reviewed with the patient. NIPT normal XX female. Structural survey ultrasound ordered. Notes Visit Date: 11/27/24 Last Updated by: Gama Rucker MD - heart rate: 147 bpm (normal) - Ultrasound: - position: Cephalic presentation (head down) - sex: Female - Placenta: Normal - Amniotic fluid: Normal - Umbilical cord: Visualized Visit Date: 11/13/24 Last Updated by: Tamia Burleson, [facility] 24 yo . LMP 03/23/24. EDC 12/28/25. O+,abs-, rpr;;nr, rub imm, HBSAG-,hiv-,GC/CT-. NIPT-, 1 hr gtt normal Visit Date: 10/16/24 Last Updated by: Valentina Hassan (OB Clinic)MD GCT 105 Visit Date: 09/16/24 Last Updated by: Valentina Hassan (OB Clinic)MD Pt needs one hour GCT Exam General General Appearance: alert, in no apparent distress and healthy appearing Head Head exam: atraumatic Neck Neck exam: Present normal inspection and trachea midline Chest Chest inspection: Present normal inspection and symmetric chest wall rise External exam: Present normal external exam; Absent tenderness Neuro Neurological exam: Present oriented X3 Psych Psychiatric exam: Present normal affect and normal mood Office Procedures OB Clinic LOC & Office Proc's Nursing/Assessment Patient Status: Established Patient OB Clinic Nursing Assessment: Medication Reconciliation, Update PMH in EMR and Vital Signs OB Clinic Coordination of Care: Complex Care and Chronic Disease 1-5, Consent,records obtained, informed consent, 4+ Authorizations needed and Staff clarify orders Special Needs: Heart tones Established Patient Charge Established Patient Point Assignment: 125 Established Patient Point Charge: EP Level 4 (120-155) Assessment & Plan Diagnosis / Problem List (1) Supervision of high risk , unspecified, third trimester: Status: Acute Plan Problem List - , 35 weeks and 3 days gestation - Stamps Ibanez contractions Assessment at 35 weeks and 3 days gestation presenting for routine care. Patient reports occasional Stamps Ibanez contractions without persistent pain. heart rate auscultated at 147 bpm, within normal range. Ultrasound examination revealed cephalic presentation with normal anatomy, including visualization of the face, spine, and extremities. Adequate amniotic fluid and normal placental appearance were noted. No reports of vaginal bleeding, leaking fluid, or other concerning symptoms. Plan - Schedule next appointment for 1 week with Tamia (nurse practitioner) - Perform Group B Strep culture swab at 36 weeks - Continue weekly visits - Schedule future appointments with Dr. Hassan when available (in approximately 2 weeks) 1. Progress Reviewed gestational age, growth, and heart rate. Planned frequent visits (every 2 weeks until 36 weeks, then weekly). 2. Instructed patient to monitor movements and report decreases immediately. 3. Testing Counseled on routine third-trimester labs per guidelines. Discussed potential need for ultrasound or monitoring based on risk factors. 4. Preeclampsia Precaution Educated on preeclampsia signs: severe headache, vision changes, right upper quadrant pain, sudden swelling. Advised urgent reporting of symptoms and discussed blood pressure monitoring if high risk. 5. Labor Precautions Reviewed labor signs: regular contractions, pelvic pressure, back pain, bleeding, or fluid leakage. Instructed to seek immediate care for these symptoms. 6. Lifestyle and Delivery Preparation Reinforced vitamins, nutrition, and safe activity. Discussed plan, pain management, and . Advised on labor preparation (e.g., hospital bag) and expectations. 7. Psychosocial Support Assessed emotional well-being and offered resources for mental health or parenting support.
== END 2024-11-27 15:36 | disposition home or self-care (01) ==
PROVIDERS: Supervising Provider Obstetrics & Gynecology; Visit Provider Obstetrics & Gynecology
DX: O09.893 Supervision of other high risk pregnancies, third trimester (principal); O47.03 False labor before 37 completed weeks of gestation, third trimester; Z3A.35 35 weeks gestation of pregnancy
CPT/HCPCS: 99214; G0463

== ENCOUNTER 2024-12-05 10:05 | Outpatient (AMB) | payer MEDICAID, SELFPAY ==
[2024-12-05 10:11] VITALS: BP 111/73; PULSE 113; RESP 17; TEMP 36.4; O2SAT 98; BMI 27.7
--- NOTE | 2024-12-05 10:11 | OBCLNT_ITS ---
Vital Signs 12/05/24 10:11 Height 1.55 m Height Method Measured Weight 66.678 kg Weight Measurement Method Standing Scale BMI 27.7 BP 111/73 Blood Pressure Source Automatic Cuff Blood Pressure Location Right Upper Arm Position Sitting Respiration 17 Pulse 113 H Pulse Source Monitor Temp 97.5 F Temp Source Temporal Artery Scan Pulse Oximetry (%) 98 Oxygen Delivery Method Room Air Allergies/Home Meds Allergies & Medications Allergies No Known Allergies Allergy (Verified 12/05/24 10:12) Medication Reconciliation vits no.126-ferrous fum 28 mg iron-folic acid 800 mcg tablet (Classic ) tab PO 10/16/24 [History Confirmed 12/05/24] magnesium 250 mg tablet 250 mg PO QHS #30 tabs 10/30/24 [Rx Confirmed 12/05/24] Intake Visit Data Collection New Patient or Established: Established Patient (seen at [facility] within 3 years) Reason for Visit:: OBC Consent obtained for Telemed Visit: No Seen by Clinical Staff ONLY (RN/MA): No Pack Master Required: No Do You Feel Safe at Home: Yes Authorities Contacted: N/A PCP or OBGYN visit in last 3 months: Yes Date of Last PCP or OBGYN visit: 11/27/24 Hx Now: Yes Are you currently on any form of Control: No Pain Present Currently: No Pain Scale Used: Styles-Quispe/Numerical Pain scale:: 0 Smoking Status Smoking Status: Never smoker Questionnaires Covid-19 Vaccine Questionnaire Has patient been vacinated for Covid-19 Have you been vacinated for Covid-19: Yes PHQ-9 PHQ-2 Over the last 2 weeks, how often have you been bothered by any of the following problems? 1. Little interest or pleasure in doing things: not at all PHQ-9 8. Moving or speaking so slowly that other people could have noticed? - Or the opposite - being so fidgety or restless that you have been moving around a lot more than usual: not at all Source: Developed by Drs. Tylor Pitt, Brigitte Schaeffer, Leonides Norris and colleagues, with an educational glenn from [employer]. Social History Living Situation History Lives With: Family Housing: House Housing Other:: Pt not working this pregnanxy. 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 Past Medical History: No Hx Hypothyroidism, No Hx Hyperthyroidism, No Hx Breast Cancer, No Hx Cardiac Disorders, No Hx Hypertension, No Hx Anemia, No Hx Renal Disease, No Hx Diabetes Mellitus Type 1, No Hx Diabetes Mellitus Type 2 and No Hx Polycystic Ovarian Syndrome Care OB Visit Log OB Flowsheet Initial Weight: Not Recorded Date -?-?-?-?-?-?-?-?-?-?-?-?- EGA Weight BP Alb Glu CTX Pres Fundal ht FHR Mov Dilation Station Effacement Hx Notes Visit Note 07/12/24 -?-?-?-?-?-?-?-?-?-?-?-?- 15w 5d 60.895 kg 105/69 140 active 08/14/24 -?-?-?-?-?-?-?-?-?-?-?-?- 20w 3d 62.823 kg 103/66 22 135 active 09/16/24 -?-?-?-?-?-?-?-?-?-?-?-?- 25w 1d 65.034 kg 108/68 25 150 active 10/16/24 -?-?-?-?-?-?-?-?-?-?-?-?- 29w 3d 66.281 kg 103/64 30 135 active +FM, No UCs, NO LOF 10/30/24 -?-?-?-?-?-?-?-?-?-?-?-?- 31w 3d 66.338 kg 108/67 32 156 active Patient reports good movement no loss of fluids no vaginal bleeding. She reports leg cramps at night. We did discuss magnesium. 11/13/24 -?-?-?-?-?-?-?-?-?-?-?-?- 33w 3d 66.338 kg 105/67 absent cephalic 33 136 active fetus active, no PTL complaints. denies ptl s/s TDAP today, discuss FKC bid, discuss PTL precaution, hydrate, 11/27/24 -?-?-?-?-?-?-?-?-?-?-?-?- 35w 3d 66.905 kg 107/72 occasional cephalic 35 147 active No CTX/LOF/VB, reports occasional cramps consistent with [place] Ibanez, good FM. FHR 147, cephalic presentation. Plan: fol low-up in 1 week with Tamia, schedule GBS swab at 36 weeks, weekly visits to continue, future appt with Dr. Hassan in ~2 weeks. 12/05/24 -?-?-?-?-?-?-?-?-?-?-?-?- 36w 4d 66.678 kg 111/73 occasional cephalic 36 145 active 0 -3 35 increased BH. no VB, no LOF, fetus active,pressure, SVE: L/C/P soft GBS today, discuss labor precaution, fkc bid, discuss ER precaution. rtc 1 week obc KEITH Calculator Estimated Delivery Date Method Current WG Current Estimate 12/29/24 Ultrasound #1 36w 4d Other Estimates 12/28/24 LMP (Uncertain) 36w 5d Expected Delivery Route/Plan Anticipate Specific Issue/Plans labs and NIPT results reviewed with the patient. NIPT normal XX female. Structural survey ultrasound ordered. Notes Visit Date: 12/05/24 Last Updated by: Tamia Burleson CNM OB panel: O+,abs-, rpr;;nr, rub imm, hbsag-,hiv-, HC-, GC/CT-, UT-, 1 hr gtt normal Visit Date: 11/27/24 Last Updated by: Gama Rucker MD - heart rate: 147 bpm (normal) - Ultrasound: - position: Cephalic presentation (head down) - sex: Female - Placenta: Normal - Amniotic fluid: Normal - Umbilical cord: Visualized Visit Date: 11/13/24 Last Updated by: Tamia Burleson CNM 24 yo . LMP 03/23/24. EDC 12/28/25. O+,abs-, rpr;;nr, rub imm, HBSAG-,hiv-,GC/CT-. NIPT-, 1 hr gtt normal Visit Date: 10/16/24 Last Updated by: Valentina Hassan ([facility] Clinic), GCT 105 Visit Date: 09/16/24 Last Updated by: Valentina Hassan (OB Clinic)MD Pt needs one hour GCT Office Procedures OB Clinic LOC & Office Proc's Nursing/Assessment Patient Status: Established Patient OB Clinic Nursing Assessment: Medication Reconciliation, Update PMH in EMR and Vital Signs OB Clinic Coordination of Care: Complex Care and Chronic Disease 1-5, Consent,records obtained, informed consent, Education Simp Pt/Fam and Staff clarify orders Special Needs: Heart tones Established Patient Charge Established Patient Point Assignment: 115 Established Patient Point Charge: EP Level 3 (80-115) Assessment & Plan Diagnosis / Problem List (1) Supervision of high risk , unspecified, third trimester: Status: Acute Plan GBS today. Discussed labor precautions. Discussed kick counts twice a day. Discussed danger signs symptoms and ER precautions. Return in a week OB check Additional Plan Follow Up: 1 Week (obc)
== END 2024-12-05 10:40 | disposition home or self-care (01) ==
PROVIDERS: PCP Advanced Practice Midwife; Referring Provider Advanced Practice Midwife; Supervising Provider Advanced Practice Midwife; Visit Provider Advanced Practice Midwife
DX: O09.93 Supervision of high risk pregnancy, unspecified, third trimester (principal); Z3A.36 36 weeks gestation of pregnancy; Z36.85 Encounter for antenatal screening for Streptococcus B
CPT/HCPCS: 99213; G0463

== ENCOUNTER 2024-12-11 14:23 | Outpatient (AMB) | payer MEDICAID, SELFPAY ==
[2024-12-11 14:36] VITALS: BP 116/72; PULSE 111; RESP 17; TEMP 36.7; O2SAT 98; BMI 28.1
--- NOTE | 2024-12-11 14:36 | OBCLNT_ITS ---
Vital Signs 12/11/24 14:36 Height 1.55 m Height Method Measured Weight 67.642 kg Weight Measurement Method Standing Scale BMI 28.1 BP 116/72 Blood Pressure Source Automatic Cuff Blood Pressure Location Right Upper Arm Position Sitting Respiration 17 Pulse 111 H Pulse Source Monitor Temp 98.1 F Temp Source Temporal Artery Scan Pulse Oximetry (%) 98 Oxygen Delivery Method Room Air Allergies/Home Meds Allergies & Medications Allergies No Known Allergies Allergy (Verified 12/11/24 14:37) Medication Reconciliation vits no.126-ferrous fum 28 mg iron-folic acid 800 mcg tablet (Classic ) tab PO 10/16/24 [History Confirmed 12/11/24] magnesium 250 mg tablet 250 mg PO QHS #30 tabs 10/30/24 [Rx Confirmed 12/11/24] Intake Visit Data Collection New Patient or Established: Established Patient (seen at [facility] within 3 years) Reason for Visit:: OBC Consent obtained for Telemed Visit: No Seen by Clinical Staff ONLY (RN/MA): No Wood Setter Required: No Do You Feel Safe at Home: Yes Authorities Contacted: N/A PCP or OBGYN visit in last 3 months: Yes Date of Last PCP or OBGYN visit: 12/05/24 Hx Now: Yes Are you currently on any form of Control: No Pain Present Currently: No Pain Scale Used: Styles-Quispe/Numerical Pain scale:: 0 Smoking Status Smoking Status: Never smoker Questionnaires Covid-19 Vaccine Questionnaire Has patient been vacinated for Covid-19 Have you been vacinated for Covid-19: Yes PHQ-9 PHQ-2 Over the last 2 weeks, how often have you been bothered by any of the following problems? 1. Little interest or pleasure in doing things: not at all PHQ-9 8. Moving or speaking so slowly that other people could have noticed? - Or the opposite - being so fidgety or restless that you have been moving around a lot more than usual: not at all Source: Developed by Drs. Tylor Pitt, Brigitte Schaeffer, Leonides Norris and colleagues, with an educational glenn from [employer]. Social History Living Situation History Lives With: Family Housing: House Housing Other:: Pt not working this pregnanxy. 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 Past Medical History: No Hx Hypothyroidism, No Hx Hyperthyroidism, No Hx Breast Cancer, No Hx Cardiac Disorders, No Hx Hypertension, No Hx Anemia, No Hx Renal Disease, No Hx Diabetes Mellitus Type 1, No Hx Diabetes Mellitus Type 2 and No Hx Polycystic Ovarian Syndrome Care OB Visit Log OB Flowsheet Initial Weight: Not Recorded Date -?-?-?-?-?-?-?-?-?-?-?-?- EGA Weight BP Alb Glu CTX Pres Fundal ht FHR Mov Dilation Station Effacement Hx Notes Visit Note 07/12/24 -?-?-?-?-?-?-?-?-?-?-?-?- 15w 5d 60.895 kg 105/69 140 active 08/14/24 -?-?-?-?-?-?-?-?-?-?-?-?- 20w 3d 62.823 kg 103/66 22 135 active 09/16/24 -?-?-?-?-?-?-?-?-?-?-?-?- 25w 1d 65.034 kg 108/68 25 150 active 10/16/24 -?-?-?-?-?-?-?-?-?-?-?-?- 29w 3d 66.281 kg 103/64 30 135 active +FM, No UCs, NO LOF 10/30/24 -?-?-?-?-?-?-?-?-?-?-?-?- 31w 3d 66.338 kg 108/67 32 156 active Patient reports good movement no loss of fluids no vaginal bleeding. She reports leg cramps at night. We did discuss magnesium. 11/13/24 -?-?-?-?-?-?-?-?-?-?-?-?- 33w 3d 66.338 kg 105/67 absent cephalic 33 136 active fetus active, no PTL complaints. denies ptl s/s TDAP today, discuss FKC bid, discuss PTL precaution, hydrate, 11/27/24 -?-?-?-?-?-?-?-?-?-?-?-?- 35w 3d 66.905 kg 107/72 occasional cephalic 35 147 active No CTX/LOF/VB, reports occasional cramps consistent with [place] Ibanez, good FM. FHR 147, cephalic presentation. Plan: fol low-up in 1 week with Tamia, schedule GBS swab at 36 weeks, weekly visits to continue, future appt with Dr. Hassan in ~2 weeks. 12/05/24 -?-?-?-?-?-?-?-?-?-?-?-?- 36w 4d 66.678 kg 111/73 occasional cephalic 36 145 active 0 -3 35 increased BH. no VB, no LOF, fetus active,pressure, SVE: L/C/P soft GBS today, discuss labor precaution, fkc bid, discuss ER precaution. rtc 1 week obc 12/11/24 -?-?-?-?-?-?-?-?-?-?-?-?- 37w 3d 67.642 kg 116/72 occasional cephalic 37 145 active increased pressure, fetus active, no leaking or bleeding. discuss GBS, discuss labor precaution, fkc bid, hydrate. continue PNV. rtc 1 week obc KEITH Calculator Estimated Delivery Date Method Current WG Current Estimate 12/29/24 Ultrasound #1 37w 3d Other Estimates 12/28/24 LMP (Uncertain) 37w 4d Expected Delivery Route/Plan Anticipate Specific Issue/Plans labs and NIPT results reviewed with the patient. NIPT normal XX female. Structural survey ultrasound ordered. Notes Visit Date: 12/11/24 Last Updated by: Tamia Burleson CNM GBS- Visit Date: 12/05/24 Last Updated by: Tamia Burleson CNM OB panel: O+,abs-, rpr;;nr, rub imm, hbsag-,hiv-, HC-, GC/CT-, UT-, 1 hr gtt normal Visit Date: 11/27/24 Last Updated by: Gama Rucker MD - heart rate: 147 bpm (normal) - Ultrasound: - position: Cephalic presentation (head down) - sex: Female - Placenta: Normal - Amniotic fluid: Normal - Umbilical cord: Visualized Visit Date: 11/13/24 Last Updated by: Tamia Burleson CNM 24 yo . LMP 03/23/24. EDC 12/28/25. O+,abs-, rpr;;nr, rub imm, HBSAG-,hiv-,GC/CT-. NIPT-, 1 hr gtt normal Visit Date: 10/16/24 Last Updated by: Valentina Hassan (OB Clinic)MD GCT 105 Visit Date: 09/16/24 Last Updated by: Valentina Hassan ([facility] Clinic)MD Pt needs one hour GCT Office Procedures OB Clinic LOC & Office Proc's Nursing/Assessment Patient Status: Established Patient OB Clinic Nursing Assessment: Medication Reconciliation, Update PMH in EMR and Vital Signs OB Clinic Coordination of Care: Complex Care and Chronic Disease 1-5, Education Complex Pt/Fam and Consent,records obtained, informed consent Special Needs: Heart tones Established Patient Charge Established Patient Point Assignment: 110 Established Patient Point Charge: EP Level 3 (80-115) Assessment & Plan Diagnosis / Problem List (1) Supervision of high risk , unspecified, third trimester: Status: Acute Plan discuss labor precaution, fkc bid. hydrate. increase fluid, rtc 1 week obc Additional Plan Follow Up: 1 Week (obc)
== END 2024-12-11 14:54 | disposition home or self-care (01) ==
LOC: HODSOBC 14:23
PROVIDERS: PCP Advanced Practice Midwife; Referring Provider Advanced Practice Midwife; Supervising Provider Advanced Practice Midwife; Visit Provider Advanced Practice Midwife
DX: O09.893 Supervision of other high risk pregnancies, third trimester (principal); Z3A.37 37 weeks gestation of pregnancy
CPT/HCPCS: 99213; G0463

== ENCOUNTER 2024-12-18 13:41 | Outpatient (AMB) | payer MEDICAID, SELFPAY ==
[2024-12-18 13:58] VITALS: BP 101/66; PULSE 101; RESP 17; TEMP 36.7; O2SAT 97; BMI 28.5
--- NOTE | 2024-12-18 13:58 | OBCLNT_ITS ---
Vital Signs 12/18/24 13:58 Height 1.55 m Height Method Stated Weight 68.663 kg Weight Measurement Method Standing Scale BMI 28.5 BP 101/66 Blood Pressure Source Automatic Cuff Blood Pressure Location Right Upper Arm Position Sitting Respiration 17 Pulse 101 H Pulse Source Monitor Temp 98.1 F Temp Source Temporal Artery Scan Pulse Oximetry (%) 97 Oxygen Delivery Method Room Air Allergies/Home Meds Allergies & Medications Allergies No Known Allergies Allergy (Verified 12/18/24 14:00) Medication Reconciliation vits no.126-ferrous fum 28 mg iron-folic acid 800 mcg tablet (Classic ) tab PO 10/16/24 [History Confirmed 12/18/24] magnesium 250 mg tablet 250 mg PO QHS #30 tabs 10/30/24 [Rx Confirmed 12/18/24] Intake Visit Data Collection New Patient or Established: Established Patient (seen at [facility] within 3 years) Reason for Visit:: OBC Seen by Clinical Staff ONLY (RN/MA): No Pattern Drum Maker Required: No Do You Feel Safe at Home: Yes Authorities Contacted: N/A PCP or OBGYN visit in last 3 months: Yes Date of Last PCP or OBGYN visit: 12/11/24 Hx Now: Yes Are you currently on any form of Control: No Pain Present Currently: No Pain Scale Used: Styles-Quispe/Numerical Pain scale:: 0 Smoking Status Smoking Status: Never smoker Questionnaires Covid-19 Vaccine Questionnaire Has patient been vacinated for Covid-19 Have you been vacinated for Covid-19: No PHQ-9 PHQ-2 Over the last 2 weeks, how often have you been bothered by any of the following problems? 1. Little interest or pleasure in doing things: not at all 2. Feeling down, depressed, or hopeless: not at all Total score: 0 PHQ-9 3. Trouble falling or staying asleep, or sleeping too much: Not at all 4. Feeling tired or having little energy: Not at all 5. Poor appetite or overeating: Not at all 6. Feeling bad about yourself - or that you are a failure or have let yourself or your family down: Not at all 7. Trouble concentrating on things, such as reading the newspaper or watching television: Not at all 8. Moving or speaking so slowly that other people could have noticed? - Or the opposite - being so fidgety or restless that you have been moving around a lot more than usual: not at all 9. Thoughts that you would be better off or of hurting yourself in some way: Not at all Total score: 0 If you checked off any problems, how difficult have these problems made it for you to do your work, take care of things at home, or get along with other people?: not difficult at all Source: Developed by Drs. Tylor Pitt, Brigitte Schaeffer, Leonides Norris and colleagues, with an educational glenn from [employer]. Depression screen completed yes Social History Living Situation History Marital Status: Life Partner Lives With: Family Housing: House Housing Other:: Pt not working this pregnanxy. FOB named Jas is a adding machine mechanic Tobacco History Smoking Status: Never smoker Second Hand Smoke Exposure: No Alcohol History Alcohol Intake: Never Substance Use History Substance Use: no Domestic Abuse History Do You Feel Safe at Home: Yes [place]: Past Medical History Past Medical History: No Hx Hypothyroidism, No Hx Hyperthyroidism, No Hx Breast Cancer, No Hx Cardiac Disorders, No Hx Hypertension, No Hx Anemia, No Hx Renal Disease, No Hx Diabetes Mellitus Type 1, No Hx Diabetes Mellitus Type 2 and No Hx Polycystic Ovarian Syndrome Care OB Visit Log OB Flowsheet Initial Weight: Not Recorded Date -?-?-?-?-?-?-?-?-?-?-?-?- EGA Weight BP Alb Glu CTX Pres Fundal ht FHR Mov Dilation Station Effacement Hx Notes Visit Note 07/12/24 -?-?-?-?-?-?-?-?-?-?-?-?- 15w 5d 60.895 kg 105/69 140 active 08/14/24 -?-?-?-?-?-?-?-?-?-?-?-?- 20w 3d 62.823 kg 103/66 22 135 active 09/16/24 -?-?-?-?-?-?-?-?-?-?-?-?- 25w 1d 65.034 kg 108/68 25 150 active 10/16/24 -?-?-?-?-?-?-?-?-?-?-?-?- 29w 3d 66.281 kg 103/64 30 135 active +FM, No UCs, NO LOF 10/30/24 -?-?-?-?-?-?-?-?-?-?-?-?- 31w 3d 66.338 kg 108/67 32 156 active Patient reports good moveme nt no loss of fluids no vaginal bleeding. She reports leg cramps at night. We did discuss magnesium. 11/13/24 -?-?-?-?-?-?-?-?-?-?-?-?- 33w 3d 66.338 kg 105/67 absent cephalic 33 136 active fetus active, no PTL complaints. denies ptl s/s TDAP today, discuss FKC bid, discuss PTL precaution, hydrate, 11/27/24 -?-?-?-?-?-?-?-?-?-?--?-?- 35w 3d 66.905 kg 107/72 occasional cephalic 35 147 active No CTX/LOF/VB, reports occasional cramps consistent with Clinchco Ibanez, good FM. FHR 147, cephalic presentation. Plan: fol low-up in 1 week with Tamia, schedule GBS swab at 36 weeks, weekly visits to continue, future appt with Dr. Hassan in ~2 weeks. 12/05/24 -?-?-?-?-?-?-?-?--?-?-?-?- 36w 4d 66.678 kg 111/73 occasional cephalic 36 145 active 0 -3 35 increased BH. no VB, no LOF, fetus active,pressure, SVE: L/C/P soft GBS today, discuss labor precaution, fkc bid, discuss ER precaution. rtc 1 week obc 12/11/24 -?-?-?-?-?-?-?-?-?-?-?-?- 37w 3d 67.642 kg 116/72 occasional cephalic 37 145 active increased pressure, fetus active, no leaking or bleeding. discuss GBS, discuss labor precaution, fkc bid, hydrate. continue PNV. rtc 1 week obc 12/18/24 -?-?-?-?-?-?-?-?-?-?-?-?- 38w 3d 68.663 kg 101/66 occasional cephalic 38 143 active 0 -1 80 good movement no loss of fluids no vaginal bleeding Discussed labor. Discussed epidural. Patient will go to [place] as far as pain medicine go. She is not currently with the father the baby. She will have a friend and a sister in labor with her. No physical or verbal abuse KEITH Calculator Estimated Delivery Date Method Current WG Current Estimate 12/29/24 Ultrasound #1 38w 3d Other Estimates 12/28/24 LMP (Uncertain) 38w 4d Expected Delivery Route/Plan G1, P0 Anticipate care labs from 08/26/24 O+/antibody negative/ hepatitis B surface antigen negative /GC chlamydia negative/ rubella immune /RPR nonreactive /HIV negative group B strep negative 1 hour glucose 105. Has emesis patient was 10 mg Specific Issue/Plans labs and NIPT results reviewed with the patient. NIPT normal XX female. Structural survey ultrasound ordered. Notes Visit Date: 12/18/24 Last Updated by: Valentina Hassan (OB Clinic)MD EFW by David's 7 pounds at due date Visit Date: 12/11/24 Last Updated by: Tamia Burleson CNM GBS- Visit Date: 12/05/24 Last Updated by: Tamia Burleson CNM OB panel: O+,abs-, rpr;;nr, rub imm, hbsag-,hiv-, HC-, GC/CT-, UT-, 1 hr gtt normal Visit Date: 11/27/24 Last Updated by: Gama Rucker MD - heart rate: 147 bpm (normal) - Ultrasound: - position: Cephalic presentation (head down) - sex: Female - Placenta: Normal - Amniotic fluid: Normal - Umbilical cord: Visualized Visit Date: 11/13/24 Last Updated by: Tamia Burleson CNM 24 yo . LMP 03/23/24. EDC 12/28/25. O+,abs-, rpr;;nr, rub imm, HBSAG-,hiv-,GC/CT-. NIPT-, 1 hr gtt normal Visit Date: 10/16/24 Last Updated by: Valentina Hassan (OB Clinic)MD GCT 105 Visit Date: 09/16/24 Last Updated by: Valentina Hassan (OB Clinic)MD Pt needs one hour GCT Office Procedures OB Clinic LOC & Office Proc's Nursing/Assessment Patient Status: Established Patient OB Clinic Nursing Assessment: Medication Reconciliation, Update PMH in EMR and Vital Signs OB Clinic Coordination of Care: Complex Care and Chronic Disease 1-5, Consent,records obtained, informed consent, Education Simp Pt/Fam and Staff clarify orders Special Needs: Heart tones Established Patient Charge Established Patient Point Assignment: 115 Established Patient Point Charge: EP Level 3 (80-115)
== END 2024-12-18 14:50 | disposition home or self-care (01) ==
LOC: HODSOBC 13:41
PROVIDERS: PCP Obstetrics & Gynecology; Referring Provider Obstetrics & Gynecology; Supervising Provider Obstetrics & Gynecology; Visit Provider Obstetrics & Gynecology
DX: Z34.03 Encounter for supervision of normal first pregnancy, third trimester (principal); Z3A.38 38 weeks gestation of pregnancy
CPT/HCPCS: 99213; G0463

== ENCOUNTER 2024-12-22 09:47 | Inpatient (IN) | payer MEDICAID, SELFPAY ==
[2024-12-22] VITALS (139 sets, daily range): BP systolic 85–142; BP diastolic 50–94; PULSE 57–180; RESP 16–98; TEMP 36.6–37; O2SAT 78–100; BMI 27.8
[2024-12-22 12:43] LABS: Basophils # (Auto) 0.0 Thou/mm3 (0.0-0.2); Basophils % (Auto) 0 % (0-2.5); Eosinophils # (Auto) 0.0 Thou/mm3 (0.0-0.5); Eosinophils % (Auto) 0 % (0-10); Hematocrit 29.7 % (36.0-46.0); Hemoglobin 8.9 g/dL (12.0-16.0); Immature Granulocytes Auto 0.07 Thou/mm3 (0.00-0.00); Lymphocytes # (Auto) 0.9 Thou/mm3 (1.0-4.8); Lymphocytes % (Auto) 9 % (10-50); Mean Corpuscular HGB Conc 30.0 g/dl (31.0-37.0); Mean Corpuscular Hemoglobin 22.4 pg (25.0-35.0); Mean Corpuscular Volume 75 fL (80-100); Monocytes # (Auto) 0.4 Thou/mm3 (0.0-0.8); Monocytes % (Auto) 4 % (0-12); Neutrophils # (Auto) 8.5 Thou/mm3 (1.8-7.7); Neutrophils % (Auto) 86 % (37-80); Nucleated Red Blood Cell # 0.02 Thou/mm3 (0.00-0.00); Nucleated Red Blood Cell % 0 /100 WBC (0); Platelet Count 362 Thou/mm3 (140-440); RDW Standard Deviation 42.6 fL (36.4-46.3); Red Blood Count 3.97 Miln/mm3 (4.00-5.20); White Blood Count 9.9 Thou/mm3 (3.6-11.0)
[2024-12-22 13:30] LABS: Syphilis Nonreactive (Nonreactive)
[2024-12-22] MEDS: MINERAL OIL 30 ML UDC TOP (19:19)
[2024-12-22] MEDS: OXYTOCIN in NS 20 units 20 UNIT/1,000 ML BAG 125 UNIT IV (19:50)
[2024-12-22] MEDS: METHYLERGONOVINE INJ 0.2 MG/ML VIAL IM (19:52)
[2024-12-22] MEDS: TRANEXAMIC ACID 1,000 MG IVPB 1,000 MG/100 ML BAG 200 MG IV (19:54)
--- NOTE | 2024-12-22 20:06 | PD.LDDELS ---
Vacuum Assisted Delivery General Patient Counseled by physician:: Yes Informed consent to patient:: Yes Estimated weight:: 3200 g Cervical dilation:: fully dilated station:: +2 position:: ROP Molding:: Yes Caput:: No Vacuum Application Vacuum type:: Mityvac Vacuum application:: flexing median Cup Placement Flexion point identified:: Yes Cup approp. for head position:: Yes Maternal tissue excluded:: Yes Vacuum Procedure Number of pulls (contractions):: 2 Number of pop-offs:: 1 Recommended range maintained:: Yes Vacuum reduced between pulls:: Yes Advancement made each pull:: Yes Vacuum successful:: Yes Immediate Evaluation Immediate assessment:: no apparent injury Hand-off care to:: motorized squad captain Data (Harris) Data Hx Section: No : 1 Term: 0 : 0 Livin Abortions: Spontaneous & Theraputic: 0 Delivery Data (Harris) Labor Data ROM date: 12/22/24 ROM time: 14:35 Amniotic membrane rupture type: Spontaneous Amniotic fluid description: Clear Delivery Data Delivered by: richie Delivery Method Presentation: Vertex
[2024-12-22] MEDS: BENZO/LANO/ALOE (Dermoplast) 60 GM CAN 1 SPRAY TOP (20:15)
--- NOTE | 2024-12-22 23:43 | PC.NURSE ---
[id number] RN precepting Thalia Grewal RN, review and agree with Labor progress assessment charting.
[2024-12-22] MEDS: IBUPROFEN TAB 400 MG TABLET 800 MG PO (23:53)
--- NOTE | 2024-12-22 23:53 | ESHP_ITS ---
Documentation for date of: 12/22/24 OB Labor/Induct. HPI History of Present Illness Chief complaint: Early labor : 1 Para: 0 Term pregnancies: 0 pregnancies: 0 Living children: 0 History of Abortions: Spontaneous and Elective: 0 History of Vaginal deliveries: 0 History of sections: No History of : No Date of last menstrual period: 03/23/24 KEITH: 12/27/24 Gestational Age (weeks): 39 Gestational Age (days): 2 Gestational age based on last menstrual period: 39 History of present illness: 24-year-old 1 para 0 at 39 weeks and 2 days presented to labor and delivery triage with spontaneous rupture of membranes and in early labor. Patient reports adequate movements and reports contractions every 3 to 5 minutes. She denies any vaginal bleeding or any other associated complaints. Patient received care at the [facility] and all her records were available for review at the time of evaluation. History of Present Adequate Care: Yes Labs Labs: Positive: Rubella Titre, Negative: RPR, Hepatitis B, HIV, Chlamydia, Gonorrhea and Group Beta Strep and Unknown: Herpes Type 1, Herpes Type 2 and Covid-19 Review of Systems Review of Systems Systems Reviewed: All systems reviewed, normal except as documented Past Medical History Surgical History SURGICAL: Negative Section Meds Home Medications and Allergies Home Medications ?Medication ?Instructions ?Recorded ?Confirmed ?Type vits no.126-ferrous fum tab PO 10/16/2412/18 History 28 mg iron-folic acid 800 mcg tablet (Classic ) Allergies Allergy/AdvReac Type Severity Reaction Status Date / Time No Known Allergies Allergy Verified 12/22/24 10:18 OB Exam Physical Exam Vital signs: Temp Pulse Resp BP Pulse Ox 98.6 F 77 18 100/61 91 L 12/22/24 15:34 12/22/24 21:47 12/22/24 15:34 12/22/24 21:47 12/22/24 20:39 Constitutional Constitutional: no acute distress Routine HEENT Exam Head: Present normocephalic and atraumatic Eye: Present EOMI and PERRL ENT: Present mucous membranes moist Routine Neck Exam Neck: Present supple and trachea midline Routine Cardiovascular Exam Cardiovascular: Present RRR Routine Abdominal Exam Abdominal: Present soft and normoactive bowel sounds Detailed Labor and Delivery Exam Dilation (cm): 3 Effacement (%): 50 Cervix position: mid station: -3 Consistency: medium Presentation: Vertex Baseline heart rate: 145 monitor accelerations: 15x15 monitor decelerations: None watermaster variability: Average (6-10) Routine Extremities Exam Extremities: Present full ROM Routine Skin Exam Skin: Present intact, dry and warm Routine Neurological Exam Neurological: Present alert, oriented X3 and CN II-XII intact Routine Psychiatric Exam Psychiatric: Present normal affect and normal thought process OB Results Labs 12/22/24 12:20 Labs: Short CBC 12/22/24 Range/Units 12:20 WBC 9.9 (3.6-11.0) Thou/mm3 Hgb 8.9 L (12.0-16.0) g/dL Hct 29.7 L (36.0-46.0) % Plt Count 362 (140-440) Thou/mm3 OB Assessment & Plan Assessment and Plan (1) Supervision of high risk , unspecified, third trimester: Status: Acute Assessment and plan: Admit to inpatient status for augmentation/management as needed IV access, LR at 125 cc/h, RPR GBS is negative Oxytocin augmentation Continuous maternal monitoring Pain management per protocol/epidural when desired Anticipate vaginal delivery
--- NOTE | 2024-12-22 23:55 | PD.GYNPROC ---
Operative Note - FINISHER ACCORDION Procedure Date of procedure: 12/22/24 Procedure Performed: Division of lung internal vaginal spectrum Right mediolateral episiotomy and vacuum-assisted vaginal delivery. Indication: 24-year-old G1, P0 with previously unrecognized lung regional vaginal Spectrum obstructing the head Maternal exhaustion during with prolonged second stage and recurrent late decelerations Anesthesia type: None Procedure description: The patient was prepped in the usual sterile fashion in the lithotomy position in the delivery room. The long digital vaginal Spectrum was palpated and its extent was determined. It was noted to be directly obstructing the presenting part. The septum was double clamped divided using the Fuentes scissors and both the ends were ligated using free ties. Subsequently a right mediolateral episiotomy was performed to create adequate room for application of the vacuum A [employer] VAC vacuum device was then applied to the scalp after identifying the presenting attitude and the flexion point. Gentle traction was applied in conjunction with maternal pushing. There was 1 pop-off with the first application. The vacuum was reapplied and with the second attempt a safe delivery was accomplished following delivery the right mediolateral episiotomy was inspected and noted to be free of any adhesions. The episiotomy was repaired in layers using 2-0 Vicryl and 3-0 Vicryl in the usual fashion. The vaginal septum repair site was also reexamined and noted to be hemostatic. Patient tolerated the entire procedure well. No other complications were encountered during the procedure Specimen: none Estimated blood loss (ml): 250 Complications: none Diagnosis Discharge Diagnosis (1) Supervision of high risk , unspecified, third trimester: Status: Acute (2) Spontaneous rupture of membranes: Status: Acute (3) Status post vacuum-assisted vaginal delivery: Status: Acute (4) Longitudinal vaginal septum with obstruction: Status: Acute Problem List Completed Was Problem List Reviewed/Reconciled?: Yes
[2024-12-23] VITALS (8 sets, daily range): BP systolic 102–116; BP diastolic 63–73; PULSE 82–100; RESP 16–18; TEMP 36.7–37.1; O2SAT 98–100
[2024-12-23 01:57] LABS: Amphetamine/Metham Scrn,Ur OB Negative (Negative); Benzoylecgonine Screen, Ur OB Negative (Negative); Opiate Screen,Urine OB Negative (Negative); THC Screen,Urine OB Negative (Negative)
[2024-12-23] MEDS: ceFAZolin/D5W 2 GM IV 2 GM/100 ML BAG IV (06:13)
[2024-12-23 06:15] LABS: Basophils # (Auto) 0.0 Thou/mm3 (0.0-0.2); Basophils % (Auto) 0 % (0-2.5); Eosinophils # (Auto) 0.0 Thou/mm3 (0.0-0.5); Eosinophils % (Auto) 0 % (0-10); Hematocrit 23.4 % (36.0-46.0); Immature Granulocytes Auto 0.14 Thou/mm3 (0.00-0.00); Lymphocytes # (Auto) 0.6 Thou/mm3 (1.0-4.8); Lymphocytes % (Auto) 3 % (10-50); Mean Corpuscular HGB Conc 30.3 g/dl (31.0-37.0); Mean Corpuscular Hemoglobin 22.8 pg (25.0-35.0); Mean Corpuscular Volume 75 fL (80-100); Monocytes # (Auto) 0.4 Thou/mm3 (0.0-0.8); Monocytes % (Auto) 2 % (0-12); Neutrophils # (Auto) 18.6 Thou/mm3 (1.8-7.7); Neutrophils % (Auto) 94 % (37-80); Nucleated Red Blood Cell # 0.00 Thou/mm3 (0.00-0.00); Nucleated Red Blood Cell % 0 /100 WBC (0); Platelet Count 307 Thou/mm3 (140-440); RDW Standard Deviation 43.8 fL (36.4-46.3); Red Blood Count 3.11 Miln/mm3 (4.00-5.20); White Blood Count 19.7 Thou/mm3 (3.6-11.0)
[2024-12-23 06:37] LABS: Hemoglobin 7.1 g/dL (12.0-16.0)
--- NOTE | 2024-12-23 07:52 | PC.CC ---
Addendum entered by Marisol Tellez 12/23/24 12:44: ASW completed a biopsychosocial at bedside with the pt. ASW introduced self, role, and reason for assessment. ASW disclosed limits of confidentiality as well. Patient appeared alert and oriented to self, place, and situation. Patient was pleasant; her mood appeared calm and relaxed. Patient?s thought process was linear and organized. No signs of delusions, paranoid or AVH. ASW addressed the reason for the referral which was Late to Care concerns. Pt reported that the reason she was late to care was because she could not find an OB. Pt reported that she finally found one that was accepting pts. Pt reports the infants Peds will be Dr. Gonzalez from [facility]. Pt reports she has all she needs for the infant and is fully ready for the infant to come home. Pt reports she had a vaginal delivery and stated she has no live births. Pt reported the FOB is not involved in her life and was not present for the infants . Pt reported she is breast feeding and also using formula, but wants to soley breast feed. Pt reported she does not have any other children in her care and reported no other live births. Pt reports she was vaginal delivery with no complications. Pt denies she does not take medications for MH purposes nor does she take meds for other purposes. Pt states she has strong family support. Pt reports her father will pick her up from the hospital when she and baby are ready for d/c. Pt reports she is will apply for [facility] upon d/c. Pt does nore receive christensen aid or food stamps but gets medi-shantel. ASW provided community resources to the pt such as [facility] and community mental health agencies if needed. Pt reports she does her own ADLs and does not need DME. There are no concerns with SS at this time. Original Note: ASW contacted OB this AM and will f/u with pt regarding the consult for Late to Care.
--- NOTE | 2024-12-23 18:23 | PD.LDPPPRG ---
Subjective Subjective Interval history: Patient is a 24-year-old G1 now P1 001 status post vacuum-assisted vaginal delivery with right mediolateral episiotomy and a vaginal septum removal in the OR by Dr. Bita Mcdaniel in the evening on 12/22/2024. This morning she is resting comfortably in bed. Her pain is controlled. She denies heavy vaginal bleeding. She is anemic with her predelivery hemoglobin 8.9 this morning her hemoglobin is 7.1. The plan will be to repeat this tomorrow. She might need a blood transfusion. Exam Vital Signs Temp Pulse Resp BP Pulse Ox O2 Del Method 98.2 F 90 16 110/73 98 Room Air 12/23/24 15:50 12/23/24 15:50 12/23/24 15:50 12/23/24 15:50 12/23/24 15:50 12/23/24 15:50 Narrative Exam Near umbilicus extremities show no significant edema or erythema. Objective Labs 12/23/24 05:02 Labs: Laboratory Results - last 24 hr 12/22/24 12/22/24 12/23/24 12:20 22:05 05:02 WBC 19.7 H D RBC 3.11 L Hgb 7.1 L D Hct 23.4 L MCV 75 L MCH 22.8 L MCHC 30.3 L RDW Std Deviation 43.8 Plt Count 307 D Neut % (Auto) 94 H Lymph % (Auto) 3 L Amelia % (Auto) 2 Eos % (Auto) 0 Baso % (Auto) 0 Neut # (Auto) 18.6 H Lymph # (Auto) 0.6 L Amelia # (Auto) 0.4 Eos # (Auto) 0.0 Baso # (Auto) 0.0 Immature Gran # (Auto) 0.14 H Absolute Nucleated RBC 0.00 Immature Gran % 1 H Nucleated RBC % 0 Urine Opiates Screen Negative U Amphetamin/Meth Scrn Negative U Cocaine Metab Screen Negative U Marijuana (THC) Screen Negative Crossmatch See Detail Assessment & Plan Problem List (1) Status post vacuum-assisted vaginal delivery: Status: Acute (2) Longitudinal vaginal septum with obstruction: Problem details: Status post removal in the OR by Dr. Rucker. Status: Acute (3) care following vaginal delivery: Problem details: Ambulate. Pain control orally as tolerated. Status: Acute (4) Anemia affecting : Problem details: Recheck CBC in the morning. Patient might need a blood transfusion before discharge. Status: Acute Time Spent With Patient Time: Total time spent is greater than 50% in coordination of care (as documented) at patient's floor/unit and/or counseling patient: Time with patient: less than 15 minutes
[2024-12-23 19:34] LABS: Basophils # (Auto) 0.0 Thou/mm3 (0.0-0.2); Basophils % (Auto) 0 % (0-2.5); Eosinophils # (Auto) 0.0 Thou/mm3 (0.0-0.5); Eosinophils % (Auto) 0 % (0-10); Hematocrit 21.0 % (36.0-46.0); Immature Granulocytes Auto 0.11 Thou/mm3 (0.00-0.00); Lymphocytes # (Auto) 1.5 Thou/mm3 (1.0-4.8); Lymphocytes % (Auto) 10 % (10-50); Mean Corpuscular HGB Conc 31.0 g/dl (31.0-37.0); Mean Corpuscular Hemoglobin 23.1 pg (25.0-35.0); Mean Corpuscular Volume 75 fL (80-100); Monocytes # (Auto) 0.7 Thou/mm3 (0.0-0.8); Monocytes % (Auto) 5 % (0-12); Neutrophils # (Auto) 12.1 Thou/mm3 (1.8-7.7); Neutrophils % (Auto) 84 % (37-80); Nucleated Red Blood Cell # 0.02 Thou/mm3 (0.00-0.00); Nucleated Red Blood Cell % 0 /100 WBC (0); Platelet Count 315 Thou/mm3 (140-440); RDW Standard Deviation 43.8 fL (36.4-46.3); Red Blood Count 2.81 Miln/mm3 (4.00-5.20); White Blood Count 14.4 Thou/mm3 (3.6-11.0)
[2024-12-23 19:43] LABS: Hemoglobin 6.5 g/dL (12.0-16.0)
[2024-12-23 20:07] LABS: Path Review Blood Smear Sent to Pathologist
--- NOTE | 2024-12-23 20:18 | PD.LDPPPRG ---
Subjective Subjective Interval history: Patient is a 24-year-old -0-0-1 status post vacuum-assisted vaginal delivery with a right mediolateral episiotomy and removal of a vaginal septum last evening at about [address] Rivas. Patient's predelivery hemoglobin was 8.9 postdelivery hemoglobin was 7.1. The patient really wants to go home. I was going to keep her utill tomorrow due to her low hemoglobin and recheck another CBC in the morning but the patient is dressed and ready and laying in her bed comfortably. She states her pain is really well-controlled ,she denies any dizziness or lightheadedness, she denies any heavy vaginal bleeding .She has had a bowel movement and states her pain is controlled and she is not requesting any narcotic pain medicine to be discharged. She sees me at the clinic on a regular basis is an and is very reliable. Exam Vital Signs Temp Pulse Resp BP Pulse Ox O2 Del Method 98.2 F 90 16 110/73 98 Room Air 12/23/24 15:50 12/23/24 15:50 12/23/24 15:50 12/23/24 15:50 12/23/24 15:50 12/23/24 15:50 Objective Labs 12/23/24 19:21 Labs: Laboratory Results - last 24 hr 12/22/24 12/23/24 12/23/24 22:05 05:02 19:21 WBC 19.7 H D 14.4 H D RBC 3.11 L 2.81 L Hgb 7.1 L D 6.5 L* Hct 23.4 L 21.0 L* MCV 75 L 75 L MCH 22.8 L 23.1 L MCHC 30.3 L 31.0 RDW Std Deviation 43.8 43.8 Plt Count 307 D 315 Neut % (Auto) 94 H 84 H Lymph % (Auto) 3 L 10 [place] % (Auto) 2 5 Eos % (Auto) 0 0 Baso % (Auto) 0 0 Neut # (Auto) 18.6 H 12.1 H Lymph # (Auto) 0.6 L 1.5 [place] # (Auto) 0.4 0.7 Eos # (Auto) 0.0 0.0 Baso # (Auto) 0.0 0.0 Immature Gran # (Auto) 0.14 H 0.11 H Absolute Nucleated RBC 0.00 0.02 H Immature Gran % 1 H 1 H Nucleated RBC % 0 0 Smear Path Review Sent to Pathologist Urine Opiates Screen Negative U Amphetamin/Meth Scrn Negative U Cocaine Metab Screen Negative U Marijuana (THC) Screen Negative Assessment & Plan Problem List (1) Status post vacuum-assisted vaginal delivery: Status: Acute (2) Longitudinal vaginal septum with obstruction: Problem details: Status post removal in the OR by Dr. Rucker. Status: Acute (3) care following vaginal delivery: Problem details: Ambulate. Pain control orally as tolerated. Status: Acute (4) Anemia affecting : Problem details: Patient wants to go home. She is asymptomatic. Predelivery hemoglobin 8.9. CBC at 24 hours is 6.5. Patient is having no symptoms of anemia and would like to be discharged. She will recheck a CBC in 1 week. Status: Acute Time Spent With Patient Time: Total time spent is greater than 50% in coordination of care (as documented) at patient's floor/unit and/or counseling patient: Time with patient: less than 15 minutes
--- NOTE | 2024-12-23 20:24 | PD.LDDS ---
DS: Providers Provider Date of admission: 12/22/24 11:55 Primary care physician: Blake Anderson MD Admitting Provider: Gama Rucker MD Attending Provider on Admission: Gama Rucker MD Consults: 12/22/24 20:49 Referral Routine Comment: Attending Provider on DC: Valentina Hassan [facility] ([facility]) Discharging Provider: Valentina Hassan MD ([facility]) Anticipated date of discharge: 12/23/24 DS: Diagnosis Discharge Diagnosis (1) Anemia affecting : Status: Acute (2) care following vaginal delivery: Status: Acute (3) Longitudinal vaginal septum with obstruction: Status: Acute Problem List Completed Was Problem List Reviewed/Reconciled?: Yes Summary/Hosp Course Brief History: 24-year-old 1 para 0 at 39 weeks and 2 days presented to labor and delivery triage with spontaneous rupture of membranes and in early labor. Patient reports adequate movements and reports contractions every 3 to 5 minutes. She denies any vaginal bleeding or any other associated complaints. Patient received care at the [facility] and all her records were available for review at the time of evaluation. The patient was admitted by Dr. Sunshine. Please see history and physical for further details. The patient underwent a vacuum-assisted vaginal delivery with medial right mediolateral episiotomy and vaginal septum removal and repair with Dr. Rucker in the OR 12/22/2024 at approximately 1900. Please see op report for further details. Her course was uncomplicated. Patient's predelivery hemoglobin is 8.9. Postdelivery hemoglobin at 12 hours was 7.1. Another hemoglobin was checked 24 hours and it was 6.5. Patient's pulse and blood pressure were stable. The patient was very motivated to go home on day 1 and did not want to stay utill the morning for another CBC. She was not having any heavy bleeding, passing clots, she was not dizzy or lightheaded. She denied any pain in her perineum and actually had a bowel movement before discharge. She was discharged home day #1 in stable condition. She is to have a CBC drawn at the office in 1 week. Peripartum Data Delivery Method: Normal Vaginal Delivery Episiotomy Description: Right Mediolateral Laceration Description: see Delivery Summary Procedures: See Dr. Rucker's dictated op report complications: none Status at Discharge Cognitive/behavioral status at discharge: Alert and oriented x 3 in no apparent distress Functional status at discharge: independent ambulation Overall status at discharge: patient is progressing back to baseline Time Spent with Patient Time attestation: Total time spent providing and/or coordinating discharge services: Time spent: Less than 30 minutes Specific discharge activities: Pelvic rest x 6 weeks. Call with dizziness lightheadedness. Come back to the ER for heavy vaginal bleeding. Exam Vital Signs Temp Pulse Resp BP Pulse Ox O2 Del Method 98.2 F 90 16 110/73 98 Room Air 12/23/24 15:50 12/23/24 15:50 12/23/24 15:50 12/23/24 15:50 12/23/24 15:50 12/23/24 15:50 Narrative Exam Fundus firm, nontender Discharge Plan Plan Patient Disposition: HOME (Self Care) Disposition Comment: Stable Prescriptions/Referrals Prescriptions/Med Rec: New acetaminophen 325 mg Tablet 650 mg PO Q6HR PRN (Reason: Patient rated pain of 3) Qty: 60 0RF ibuprofen 400 mg Tablet 800 mg PO Q8HR PRN (Reason: Pain Scale 4-6 (Moderate) Qty: 60 0RF docusate sodium 100 mg Capsule 100 mg PO QDAY Qty: 60 0RF No Action Classic 28 mg iron- 800 mcg tablet PO Referrals: Blake Anderson MD [Primary Care Provider] - Patient/Caregiver Discharge Instructions Discharge Activity: activity as tolerated Other Discharge Activity Instructions:: Pelvic rest x 6 weeks. No intercourse, tampons, douching, swimming pools, bath tubs x 6 weeks. Other Discharge Diet Instructions: High iron. Take vitamins. Take oral iron tablets 3 times a week. Education Materials: After Delivery [place] Concerns, Anemia During , Feel Healthy After Print Language: Cambodian Activity Restrictions/Additional Instructions: Call the office at [phone] tomorrow to talk to Alecia. Schedule a CBC for 12/30/2024. Stand Alone Forms: T[facility]ka Award Info., Patient Portal Info Letter Discharge Order Discharge Orders: Discharge (Routine); Ordered 12/23/24 Ordered By: Valentina Hassan ([facility]) Planned Discharge Date 12/23/24 (1) Anemia affecting Qualifiers: Trimester: third trimester Qualified Code(s): O99.013 - Anemia complicating , third trimester
--- NOTE | 2024-12-23 23:47 | PC.NURSE ---
12/23/240 Educated pt to call the clinic to make an appointment in one week to have a repeat CBC done.Pt verbalized understanding.
== END 2024-12-23 22:34 | disposition home or self-care (01) | DRG 560 ==
LOC: S4SX 10:41 → S4NX 12-23 05:59 → S4SX 12-23 08:13
PROVIDERS: Obstetrics & Gynecology; Admitting Provider Obstetrics & Gynecology; PCP Family Medicine; Visit Provider Obstetrics & Gynecology
DX: O65.5 Obstructed labor due to abnormality of maternal pelvic organs (principal); O34.63 Maternal care for abnormality of vagina, third trimester; O99.02 Anemia complicating childbirth; Q52.129 Other and unspecified longitudinal vaginal septum; O63.1 Prolonged second stage (of labor); O75.81 Maternal exhaustion complicating labor and delivery; O76 Abnormality in fetal heart rate and rhythm complicating labor and delivery; Z3A.39 39 weeks gestation of pregnancy; Z37.0 Single live birth
CPT/HCPCS: 36415; 59025; 59409; 80307; 85025; 86703; 86762; 86780; 86850; 86900; 86901; 86923; 87340; 87491; 87591; 87661; 94762; J0689; J0690; J1100; J1885; J2210; J2371; J2590; J2795; J3490; J7050; A9270

== ENCOUNTER 2024-12-25 14:28 | Emergency (ER) | payer MEDICAID, SELFPAY ==
[2024-12-25 14:36] VITALS: BP 110/70; PULSE 92; RESP 20; TEMP 36.7; O2SAT 97
--- NOTE | 2024-12-25 14:42 | PD.EDRME ---
Rapid Medical Screening Exam RME Arrival date/time: 12/25/24 14:28 24-year-old female with no known medical history presents to the emergency room with a chief complaint of a 7 out of 10 headache that began after her delivery 3 days ago. Patient states she had an epidural. I have greeted and performed a focused initial assessment of this patient. A comprehensive ED assessment and evaluation of the patient, analysis of all test results, and completion of the medical decision making process will be conducted by additional ED providers. Chief Complaint: Headache Time Seen by Provider: 12/25/24 15:43 Vital signs: Vital Signs Temperature 98.1 F 12/25/24 14:36 Pulse Rate 92 12/25/24 14:36 Respiratory Rate 20 12/25/24 14:36 Blood Pressure 110/70 12/25/24 14:36 Pulse Oximetry (%) 97 12/25/24 14:36 Oxygen Delivery Method Room Air 12/25/24 14:36 Vital signs reviewed by provider: Yes
[2024-12-25 14:57] LABS: Basophils # (Auto) 0.0 Thou/mm3 (0.0-0.2); Basophils % (Auto) 0 % (0-2.5); Eosinophils # (Auto) 0.0 Thou/mm3 (0.0-0.5); Eosinophils % (Auto) 0 % (0-10); Hematocrit 26.4 % (36.0-46.0); Immature Granulocytes Auto 0.09 Thou/mm3 (0.00-0.00); Lymphocytes # (Auto) 1.1 Thou/mm3 (1.0-4.8); Lymphocytes % (Auto) 10 % (10-50); Mean Corpuscular HGB Conc 29.5 g/dl (31.0-37.0); Mean Corpuscular Hemoglobin 22.5 pg (25.0-35.0); Mean Corpuscular Volume 76 fL (80-100); Monocytes # (Auto) 0.2 Thou/mm3 (0.0-0.8); Monocytes % (Auto) 2 % (0-12); Neutrophils # (Auto) 9.6 Thou/mm3 (1.8-7.7); Neutrophils % (Auto) 87 % (37-80); Nucleated Red Blood Cell # 0.00 Thou/mm3 (0.00-0.00); Nucleated Red Blood Cell % 0 /100 WBC (0); Platelet Count 393 Thou/mm3 (140-440); RDW Standard Deviation 45.0 fL (36.4-46.3); Red Blood Count 3.47 Miln/mm3 (4.00-5.20); White Blood Count 11.1 Thou/mm3 (3.6-11.0)
[2024-12-25 15:01] LABS: Hemoglobin 7.8 g/dL (12.0-16.0)
[2024-12-25 15:09] LABS: Alanine Aminotransferase 14 U/L (10-49); Albumin, Serum 3.9 gm/dL (3.5-5.0); Albumin/Globulin Ratio 1.4 (1.2-2.2); Alkaline Phosphatase 179 U/L (46-116); Anion Gap 8 (7-16); Aspartate Amino Transferase 23 U/L (0-34); BUN/Creatinine Ratio 12 Ratio (12-20); Bilirubin,Total 0.9 mg/dL (0.3-1.2); Blood Urea Nitrogen 7 mg/dL (9-23); Calcium 9.0 mg/dL (8.3-10.6); Calcium (Corrected) 9.1 mg/dL (8.5-10.1); Carbon Dioxide 25.4 mMol/L (20.0-31.0); Chloride 109 mMol/L (98-107); Creatinine (Component) 0.6 mg/dL (0.6-1.3); Estimated Creatinine Clearance 119.1 mL/min (>60); Globulin 2.7 gm/dL (2.3-3.5); Glucose 134 mg/dL (74-106); Osmolality,Calculated 283 (275-295); Potassium 3.4 mMol/L (3.4-5.1); Sodium 142 mMol/L (136-145); Total Protein 6.6 gm/dL (5.7-8.2); eGFR > 60 See Note
[2024-12-25 15:11] LABS: INR 0.9 (0.9-1.3); Partial Thromboplastin Time 23.0 Seconds (22.0-36.0); Prothrombin Time 10.2 Seconds (9.0-12.2)
[2024-12-25] MEDS: ACETAMINOPHEN 325 MG TABLET 650 MG PO (15:32)
--- NOTE | 2024-12-25 16:19 | EDNOTE_ITS ---
<Statement entered by Cheyenne Del Castillo MD - 12/31/24 06:56> As co-signing physician, I was present and available for consult prn. I concur with the plan and care as documented by the midlevel provider. ED Headache RME/HPI General Chief Complaint: Headache Stated Complaint: HEADACHE SINCE DELIVERY 12/22; HAD EPIDURAL Time Seen by Provider: 12/25/24 15:43 Arrival date/time: 12/25/24 14:28 RME / HPI RME / HPI Narrative: 24-year-old female patient came in for evaluation regarding headache. Patient had vaginal delivery with epidural anesthesia 3 days ago, was given blood because she developed anemia. She was discharged 2 days ago, prior to discharge she told her nurse/anesthesia that she is having headache especially with upright position and ambulation. She had no pain when she is lying in bed. But every time she gets up Related Data Home Medications ?Medication ?Instructions ?Recorded ?Confirmed vits no.126-ferrous fum tab PO 10/16/2412/18 28 mg iron-folic acid 800 mcg tablet (Classic ) Previous Rx's ?Medication ?Instructions ?Recorded acetaminophen 325 mg tablet 650 mg (2 x 325 mg) PO Q6H R PRN 12/23/24 Patient rated pain of 3 #60 tabs docusate sodium 100 mg capsule 100 mg PO QDAY #60 caps 12/23/24 ibuprofen 400 mg tablet 800 mg (2 x 400 mg) PO Q8HR PRN 12/23/24 Pain Scale 4-6 (Moderate #60 tabs Allergies Allergy/AdvReac Type Severity Reaction Status Date / Time No Known Allergies Allergy Verified 12/25/24 14:32 Course Quality Measures none Orders Category Date Time Status CBC Stat Lab 12/25/24 14:46 Completed CMP [Comprehensive Metabolic Panel] Stat Lab 12/25/24 14:46 Completed PT [Prothrombin Time with INR] Stat Lab 12/25/24 14:46 Completed PTT [Partial Thromboplastin Time] Stat Lab 12/25/24 14:46 Completed Acetaminophen Tab [Tylenol Tab] Med 12/25/24 14:41 Discontinued 650 mg PO X1 ONE Ringers Lactated 1000 ml [Lactated Ringers] 1,000 ml Med 12/25/24 16:57 Discontinued IV 999 mls/hr Vital Signs Vital signs: Vital Signs Temperature 98.1 F 12/25/24 14:36 Pulse Rate 92 12/25/24 14:36 Respiratory Rate 20 12/25/24 14:36 Blood Pressure 110/70 12/25/24 14:36 Pulse Oximetry (%) 97 12/25/24 14:36 Oxygen Delivery Method Room Air 12/25/24 14:36 Headache MDM Narrative MDM Narrative:: 24-year-old female patient came in for evaluation regarding headache. Patient had vaginal delivery with epidural anesthesia 3 days ago, was given blood because she developed anemia. She was discharged 2 days ago, prior to discharge she told her nurse/anesthesia that she is having headache especially with upright position and ambulation. She had no pain when she is lying in bed. But every time she gets up Patient's workup normal. Except for hemoglobin of 7.8, hematocrit of 26.4, CMP unremarkable patient was given Tylenol and 1 L IV fluids with complete resolution of headache. Patient was noted to be ambulatory with no recurrence of headache. Patient stable for discharge home. Patient data External records reviewed:: None Clinical information provided by:: patient Social determinants that could affect healthcare access:: none Patient has the following chronic illnesses:: None How is presenting disease/condition affected by chronic disease/condition?: no chronic disease Evaluation data The following diagnostics were reviewed and interpreted by me:: lab results Lab and/or radiology exams considered but not ordered:: None Interpretation Summary: None Medications / Prescriptions Medications or Prescriptions considered but not ordered:: None Medication administrations:: Medication Administration History Discontinued Medications Acetaminophen (Acetaminophen 325 Mg Tablet) 650 mg PO X1 ONE Stop: 12/25/24 14:42 Last Admin: 12/25/24 15:32 Dose: 650 mg Documented By: Lactated Ringer's (Lactated Ringers) 1,000 mls @ 999 mls/hr IV .Q1H1M ONE Stop: 12/25/24 17:57 Last Admin: 12/25/24 17:43 Dose: 999 mls/hr Documented By: Tylenol, IV fluids for hydration Consultations Consultation(s) initiated? (list below): No Diagnosis Differential diagnosis headache: tension headache, headache and other (Spinal headache) Most likely diagnosis given after review of the tests above:: Headache Admission Indicated Admission indicated?: not indicated Admission Request Was there a request for admission?: No Disposition Plan Disposition Plan: Discharge Discharge Attestation Discharge Attestation: The patient was given an opportunity to ask questions and understood the discharge instructions. Discharge instructions specifically effects, indications for sooner follow up or return to the emergency department, and the expected course of current diagnosis. Patient condition: Stable Discharge Plan Plan Patient Disposition: HOME (Self Care) Discharge Disposition comment: Stable Prescriptions/Referrals Prescriptions/Med Rec: No Action Classic 28 mg iron- 800 mcg tablet PO acetaminophen 325 mg Tablet 650 mg PO Q6HR PRN (Reason: Patient rated pain of 3) Qty: 60 0RF ibuprofen 400 mg Tablet 800 mg PO Q8HR PRN (Reason: Pain Scale 4-6 (Moderate) Qty: 60 0RF docusate sodium 100 mg Capsule 100 mg PO QDAY Qty: 60 0RF Referrals: No Primary/Family,Physician [Primary Care Provider] - In 1 week Problem List Clinical Impression: Headache Patient/Caregiver Discharge Instructions Discharge Activity: activity as tolerated Education Materials: Self-Care for Headaches Additional Instructions: Thank you for the opportunity for serving you today. You are stable for discharged . You are advised to: Follow-up with your PCP in 1 to 2 days Return to ED for worsening of symptoms Increase oral fluids Take [id number] Tylenol as needed for headache Print Language: Croatian Stand Alone Forms: Tomeka Award Info., Patient Portal Info Letter SAM/CAROLINA Supervising Physician SAM/CAROLINA Supervising Physician: MD Ro
[2024-12-25] MEDS: RINGERS LACTATED 1000 ML 1,000 ML 999 ML IV (17:43)
== END 2024-12-25 20:07 | disposition home or self-care (01) ==
PROVIDERS: Nurse Practitioner Family; Emergency Provider Emergency Medicine
DX: R51.9 Headache, unspecified (principal)
CPT/HCPCS: 36415; 80053; 85025; 85610; 85730; 96360; 96361; 99283; J7120; A9270

== ENCOUNTER 2024-12-26 21:40 | Emergency (ER) | payer MEDICAID, SELFPAY ==
[2024-12-26 21:40] VITALS: BMI 25.3
[2024-12-26 22:48] VITALS: BP 123/70; PULSE 98; RESP 18; TEMP 36.8; O2SAT 99
--- NOTE | 2024-12-26 23:18 | PD.EDHA ---
ED Headache RME/HPI General Chief Complaint: Headache Stated Complaint: HEADACHE Time Seen by Provider: 12/26/24 23:07 Arrival date/time: 12/26/24 21:40 24F with no significant PMH presents to ED with [facility]. Patient gave several days ago and was here yesterday for this. Patient states pain is better than yesterday, but just wants to be re-evaluated. Tylenol is not providing relief. During , patient had epidural with apparently 7 attempts. Patient denies fevers/chills, vision changes, N/V, AMS, and seizures. Patient states bleeding has stopped. Limitations: no limitations Related Data Home Medications ?Medication ?Instructions ?Recorded ?Confirmed vits no.126-ferrous fum tab PO 10/16/24 12/18/24 28 mg iron-folic acid 800 mcg tablet (Classic ) Previous Rx's ?Medication ?Instructions ?Recorded acetaminophen 325 mg tablet 650 mg (2 x 325 mg) PO Q6HR PRN 12/23/24 Patient rated pain of 3 #60 tabs docusate sodium 100 mg capsule 100 mg PO QDAY #60 caps 12/23/24 ibuprofen 400 mg tablet 800 mg (2 x 400 mg) PO Q8HR PRN 12/23/24 Pain Scale 4-6 (Moderate #60 tabs metoclopramide HCl 5 mg tablet 5 mg PO BID PRN headache or 12/27/24 (Reglan) nausea/vomiting #14 tabs Allergies Allergy/AdvReac Type Severity Reaction Status Date / Time No Known Allergies Allergy Verified 12/25/24 14:32 Review of Systems Review of Systems Systems Reviewed: All systems reviewed, normal except as documented Constitutional Constitutional: Reports system reviewed and no additional complaints, except as documented, Reports as per HPI, Denies fever(s) and Reports headache(s) ENT Ears, Nose, Mouth, and Throat: Denies disequilibrium and Reports headache(s) Cardiovascular Cardiovascular: Reports system reviewed and no additional complaints, except as documented, Denies chest pain and Denies dyspnea Respiratory Respiratory: Reports system reviewed and no additional complaints, except as documented, Denies cough and Denies dyspnea Gastrointestinal Gastrointestinal: Reports system reviewed and no additional complaints, except as documented, Denies abdominal pain, Denies nausea and Denies vomiting Neurologic Neurologic: Reports system reviewed and no additional complaints, except as documented, Denies confusion, Denies disequilibrium and Reports headache(s) Psychiatric Psychiatric: Denies confusion Past Medical History Past Medical History NEUROLOGIC: Negative Neurological Disorders, Cerebrovascular Accident, Transient Ischemic Attacks (TIA), Meningitis, Seizures, Guillain-Asherton Syndrome or Migraine CARDIAC: Negative Cardiac Disorders, Myocardial Infarction, Cardiac Arrhythmia, Atrial Fibrillation, Heart Murmur, Congestive Heart Failure, Edema or Hypertension RESPIRATORY: Positive Asthma (todays visit) and Bronchitis (admitted to the hospital x 4 days last year. Possible valley fever.); Negative Chronic Obstructive Pulmonary Disease (COPD), Pneumonia, Sleep Apnea or CPAP Dependent GASTROINTESTINAL: Negative Gastrointestinal Disorders, Hepatitis, Gall Bladder Disease, Colorectal Cancer, Irritable Bowel, Gastroesophageal Reflux Disease or Obesity GENITOURINARY: Negative Genitourinary Disorders, Renal Disease or Kidney Stones REPRODUCTIVE: Negative Breast Cancer, Endometriosis, Fibroids, Genital Herpes, Gonorrhea, Pelvic Inflammatory Disease, Hx Polycystic Ovarian Syndrome, Previous Pregnancies or Syphilis MUSCULOSKELETAL: Negative Musculoskeletal Disorders, Muscular Dystrophy, Myasthenia Gravis, Marfan's Syndrome, Bone Cancer, Arthritis, Rheumatoid Arthritis, Degenerative Disk Disease, Scoliosis, Carpal Tunnel Syndrome or Fibromyalgia ENDOCRINE: Negative Endocrine Disorders, Diabetes Mellitus Type 1, Diabetes Mellitus Type 2, Hypoglycemia, Eastern's Syndrome, Spencer's Disease, Hyperthyroidism, Hypothyroidism, Thyroid Cancer, Parathyroid Disease, Pituitary Disease, Systemic Lupus Erythematosus, Syndrome of Inappropriate Antidiuretic Hormone (SIADH), Adrenal Disease or Graves' Disease HEMATOLOGIC: Negative Blood Disorders, Anemia, Leukemia or Sickle Cell Disease PSYCHO/SOCIAL: Negative Depression, Anxiety or Attention Deficit Hyperactivity Disorder OTHER HISTORY: Positive Hospitalization (four days for bronchitis); Negative Autoimmune Disease, Down Syndrome, Autism, Developmental Delay, Cosmetic Surgery, Shingles, Falls, Blood Transfusions, Blood Transfusion Reaction, Anesthesia Reactions, Organ Transplant, Chemotherapy, Radiation Therapy, Hyperbaric Therapy, MRSA, VRSA, Vancomycin-Resistant Enterococci, Human Immunodeficiency Virus (HIV), Chicken Pox, Measles, Mumps, Rubella (Martiniquais Measles), Pertussis, Clostridium Difficile, Cancer, Breast Cancer, Cervical Cancer, Colorectal Cancer, Lung Cancer or Ovarian Cancer Family History FAMILY HISTORY: Negative Family Psychiatric Problems, Family Respiratory Disorders, Family Cardiac Disorders, Family Gastrointestinal Problems, Family Cancer, Family Surgery or Family Anesthesia Reaction Surgical History SURGICAL: Negative Section or Organ Transplant Social History SMOKING STATUS: Never smoker SECOND HAND EXPOSURE: No ED Exam General Limitations: Present no limitations General appearance: Present alert and in no apparent distress Head Head exam: Present atraumatic Eye Eye exam: Present normal appearance, PERRL and EOMI ENT ENT exam: Present normal exam, normal oropharynx and mucous membranes moist Neck Neck exam: Present normal inspection, full ROM and trachea midline Chest Chest inspection: Present normal inspection and symmetric chest wall rise Respiratory Respiratory exam: Present normal lung sounds bilaterally Cardiovascular Cardiovascular exam: Present regular rate, normal rhythm and normal heart sounds Abdominal Exam Abdominal exam: Present soft and normal bowel sounds Extremities Exam Extremities exam: Present normal inspection and full ROM Back Exam Back exam: Present normal inspection and full ROM Neurological Exam Neurological exam: Present alert, oriented X3 and CN II-XII intact Psychiatric Psychiatric exam: Present normal affect and normal mood Skin Skin exam: Present warm, dry, intact and normal color Course Quality Measures none Orders Category Date Time Status Insert IV NOW Care 12/27/24 01:35 Active CBC Stat Lab 12/27/24 01:57 Completed CMP [Comprehensive Metabolic Panel] Stat Lab 12/27/24 01:57 Completed Type and Screen Stat Lab 12/27/24 01:57 Results Urinalysis, C/S if Indicated Stat Lab 12/27/24 01:40 Ordered prbc [Red Blood Cells] Stat Lab 12/27/24 01:57 Results ACETAMIN/CAFF/BUTAL (Fioricet) [Fioricet] Med 12/26/24 23:08 Discontinued 1 tab PO X1 ONE Caffeine/Sodium Benzoate Inj Med 12/27/24 01:35 Discontinued 500 mg IV X1 ONE DiphenhydrAMINE INJ [Benadryl Inj] Med 12/27/24 01:40 Discontinued 12.5 mg IVP X1 ONE Metoclopramide Inj [Reglan Inj] Med 12/27/24 01:40 Discontinued 10 mg IVP X1 ONE Ringers Lactated 1000 ml [Lactated Ringers] 1,000 ml Med 12/27/24 01:40 Discontinued IV 999 mls/hr Vital Signs Vital signs: Vital Signs Temperature 98.3 F 12/26/24 22:48 Pulse Rate 98 12/26/24 22:48 Respiratory Rate 18 12/26/24 22:48 Blood Pressure 123/70 12/26/24 22:48 Pulse Oximetry (%) 99 12/26/24 22:48 Oxygen Delivery Method Room Air 12/26/24 22:48 O2 at 99% on RA and WNLs Headache MDM Narrative MDM Narrative:: 24F with no significant PMH presents to ED with MYERS. Patient gave several days ago and was here yesterday for this. Patient states pain is better than yesterday, but just wants to be re-evaluated. Tylenol is not providing relief. During , patient had epidural with apparently 7 attempts. Patient denies fevers/chills, vision changes, N/V, AMS, and seizures. Patient states bleeding has stopped. Physical exam reveals no midline back tenderness. No redness or swelling of skin. Neck ROM intact. Patient is afebrile, calm, and alert. Gait normal. Speech normal. BP is normal. Labs from yesterday were unremarkable except for HgB of 7.8. No leukocytosis. HgB reduced to 7.3, but patient again confirms she is not bleeding anymore. Likely diluational anemia, as platelets also went down. Patient got 1L of fluids yesterday. CMP unremarkable. Patient declined blood transfusion because she didn't want to wait. Meds relieved symptoms. Patient data External records reviewed:: [facility] previous records Clinical information provided by:: patient Social determinants that could affect healthcare access:: none Patient has the following chronic illnesses:: none How is presenting disease/condition affected by chronic disease/condition?: no chronic disease Evaluation data The following diagnostics were reviewed and interpreted by me:: other (specify) (none) Lab and/or radiology exams considered but not ordered:: not ordered Interpretation Summary: n/a Medications / Prescriptions Medications or Prescriptions considered but not ordered:: ordered Medication administrations:: Medication Administration History Discontinued Medications Acetaminophen/Butalbital/Caffeine (Acetamin/Caff/Butal (Fioricet) 1 Tab) 1 tab PO X1 ONE Stop: 12/26/24 23:09 Last Admin: 12/27/24 00:11 Dose: 1 tab Documented By: DARLING Caffeine/Sodium Benzoate (Caffeine/Sod Benzoate Inj 250 Mg/Ml Vial 2 Ml) 500 mg IV X1 ONE Stop: 12/27/24 01:36 Last Admin: 12/27/24 03:40 Dose: 500 mg Documented By: AM Diphenhydramine HCl (Diphenhydramine Inj 50 Mg/Ml Vial) 12.5 mg IVP X1 ONE Stop: 12/27/24 01:41 Last Admin: 12/27/24 02:23 Dose: 12.5 mg Documented By: AM Lactated Ringer's (Lactated Ringers) 1,000 mls @ 999 mls/hr IV .Q1H1M ONE Stop: 12/27/24 02:40 Last Infusion: 12/27/24 03:53 Dose: Infused Documented By: Admin: 12/27/24 02:22 Dose: 999 mls/hr Documented By: AM Metoclopramide HCl (Metoclopramide Inj 5 Mg/Ml Vial 2 Ml) 10 mg IVP X1 ONE; Protocol Stop: 12/27/24 01:41 Last Admin: 12/27/24 02:23 Dose: 10 mg Documented By: AM above Consultations Consultation(s) initiated? (list below): No Diagnosis Differential diagnosis headache: migraine, tension headache, subarachnoid hemorrhage, headache, meningitis, sinusitis, postconcussion syndrome and other (post-epidural headache) Most likely diagnosis given after review of the tests above:: post-epidural headache Admission Indicated Admission indicated?: not indicated Admission Request Was there a request for admission?: No Disposition Plan Disposition Plan: Discharge Discharge Attestation Discharge Attestation: The patient and all family members were given an opportunity to ask questions and understood the discharge instructions. Discharge instructions specifically effects, indications for sooner follow up or return to the emergency department, and the expected course of current diagnosis. Patient condition: Stable Discharge Plan Plan Patient Disposition: HOME (Self Care) Discharge Disposition comment: Stable Prescriptions/Referrals Prescriptions/Med Rec: New metoclopramide HCl [Reglan] 5 mg tablet 5 mg PO BID PRN (Reason: headache or nausea/vomiting) Qty: 14 0RF No Action Classic 28 mg iron- 800 mcg tablet PO acetaminophen 325 mg Tablet 650 mg PO Q6HR PRN (Reason: Patient rated pain of 3) Qty: 60 0RF ibuprofen 400 mg Tablet 800 mg PO Q8HR PRN (Reason: Pain Scale 4-6 (Moderate) Qty: 60 0RF docusate sodium 100 mg Capsule 100 mg PO QDAY Qty: 60 0RF Referrals: Arnulfo Anderson MD [Primary Care Provider] - In 1 week Problem List Clinical Impression: Epidural anesthesia-induced headache during puerperium Patient/Caregiver Discharge Instructions Education Materials: ED Headache After Spinal Tap ... Additional Instructions: Please follow-up with PCP/OBGYN within 24-48 hours and return immediately if symptoms worsen. Watch for fevers/chills, neck stiffness, dizziness, and vision changes. Print Language: Uzbek Stand Alone Forms: Patient Portal Info Letter PA/RELIABILITY MANAGER Supervising Physician PA/RELIABILITY MANAGER Supervising Physician: Dr. Starr
[2024-12-27] MEDS: ACETAMIN/CAFF/BUTAL (Fioricet) 1 TAB PO (00:11)
[2024-12-27 02:12] LABS: Basophils # (Auto) 0.0 Thou/mm3 (0.0-0.2); Basophils % (Auto) 0 % (0-2.5); Eosinophils # (Auto) 0.3 Thou/mm3 (0.0-0.5); Eosinophils % (Auto) 3 % (0-10); Hematocrit 25.0 % (36.0-46.0); Immature Granulocytes Auto 0.05 Thou/mm3 (0.00-0.00); Lymphocytes # (Auto) 1.2 Thou/mm3 (1.0-4.8); Lymphocytes % (Auto) 14 % (10-50); Mean Corpuscular HGB Conc 29.2 g/dl (31.0-37.0); Mean Corpuscular Hemoglobin 22.7 pg (25.0-35.0); Mean Corpuscular Volume 78 fL (80-100); Monocytes # (Auto) 0.4 Thou/mm3 (0.0-0.8); Monocytes % (Auto) 5 % (0-12); Neutrophils # (Auto) 6.7 Thou/mm3 (1.8-7.7); Neutrophils % (Auto) 77 % (37-80); Nucleated Red Blood Cell # 0.00 Thou/mm3 (0.00-0.00); Nucleated Red Blood Cell % 0 /100 WBC (0); Platelet Count 360 Thou/mm3 (140-440); RDW Standard Deviation 45.8 fL (36.4-46.3); Red Blood Count 3.21 Miln/mm3 (4.00-5.20); White Blood Count 8.7 Thou/mm3 (3.6-11.0)
[2024-12-27 02:14] LABS: Hemoglobin 7.3 g/dL (12.0-16.0)
[2024-12-27] MEDS: RINGERS LACTATED 1000 ML 1,000 ML 999 ML IV (02:22)
[2024-12-27] MEDS: METOCLOPRAMIDE INJ 5 MG/ML VIAL 2 ML 10 MG IVP (02:23)
[2024-12-27 02:39] LABS: Alanine Aminotransferase 12 U/L (10-49); Albumin, Serum 3.8 gm/dL (3.5-5.0); Albumin/Globulin Ratio 1.4 (1.2-2.2); Alkaline Phosphatase 164 U/L (46-116); Anion Gap 10 (7-16); Aspartate Amino Transferase 16 U/L (0-34); BUN/Creatinine Ratio 10 Ratio (12-20); Bilirubin,Total 0.6 mg/dL (0.3-1.2); Blood Urea Nitrogen < 5 mg/dL (9-23); Calcium 9.3 mg/dL (8.3-10.6); Calcium (Corrected) 9.5 mg/dL (8.5-10.1); Carbon Dioxide 24.0 mMol/L (20.0-31.0); Chloride 108 mMol/L (98-107); Creatinine (Component) 0.5 mg/dL (0.6-1.3); Estimated Creatinine Clearance 143.9 mL/min (>60); Globulin 2.7 gm/dL (2.3-3.5); Glucose 101 mg/dL (74-106); Osmolality,Calculated 280 (275-295); Potassium 3.7 mMol/L (3.4-5.1); Sodium 142 mMol/L (136-145); Total Protein 6.5 gm/dL (5.7-8.2); eGFR > 60 See Note
[2024-12-27 02:41] VITALS: BP 101/86; PULSE 84; RESP 16; TEMP 36.8; O2SAT 100
[2024-12-27 03:40] VITALS: BP 106/64; PULSE 72; RESP 17; TEMP 36.7; O2SAT 99
[2024-12-27] MEDS: CAFFEINE IV (03:40)
[2024-12-27] MEDS: SODIUM BENZOATE IV (03:40)
[2024-12-27 04:00] VITALS: BP 101/63; PULSE 72; RESP 16; TEMP 36.7; O2SAT 100
== END 2024-12-27 04:54 | disposition home or self-care (01) ==
PROVIDERS: Physician Assistant; Emergency Provider Emergency Medicine; PCP Family Medicine
DX: O89.4 Spinal and epidural anesthesia-induced headache during the puerperium (principal)
CPT/HCPCS: 36415; 80053; 81001; 85025; 86850; 86900; 86901; 86923; 96361; 96374; 96375; 99283; J1200; J2765; J3490; J7120; A9270

== ENCOUNTER 2024-12-30 10:20 | Outpatient (AMB) | payer MEDICAID, SELFPAY ==
[2024-12-30 10:34] VITALS: BP 118/79; PULSE 110; RESP 17; TEMP 36.7; O2SAT 98; BMI 25.4
--- NOTE | 2024-12-30 10:34 | AMBOBPPN_ITS ---
Vital Signs 12/30/24 10:34 Height 1.55 m Height Method Stated Weight 61.235 kg Weight Measurement Method Standing Scale BMI 25.4 BP 118/79 Blood Pressure Source Automatic Cuff Blood Pressure Location Right Upper Arm Position Sitting Respiration 17 Pulse 110 H Pulse Source Monitor Temp 98.0 F Temp Source Temporal Artery Scan Pulse Oximetry (%) 98 Oxygen Delivery Method Room Air Allergies/Home Meds Allergies & Medications Allergies No Known Allergies Allergy (Verified 12/30/24 10:35) Medication Reconciliation metoclopramide HCl 5 mg tablet (Reglan) 5 mg PO BID PRN headache or nausea /vomiting #14 tabs 12/27/24 [Rx Confirmed 12/30/24] Intake Visit Data Collection New Patient or Established: Established Patient (seen at [facility] within 3 years) Reason for Visit:: 1 WEEK Seen by Clinical Staff ONLY (RN/MA): No Equity Sales Assistant Required: No Do You Feel Safe at Home: Yes Authorities Contacted: N/A PCP or OBGYN visit in last 3 months: Yes Date of Last PCP or OBGYN visit: 12/27/24 Hx Now: No Are you currently on any form of Control: No Pain Present Currently: Yes Pain Location: Head Pain Scale Used: Styles-Quispe/Numerical Pain scale:: 5 Smoking Status 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 Past Medical History: No Hx Neurological Disorders, No Hx Hypothyroidism, No Hx Hyperthyroidism, No Hx Breast Cancer, No Hx Cardiac Disorders, No Hx Hypertension, No Hx Cancer, No Hx Blood Disorders, No Hx Anemia, No Hx Gastrointestinal Disorders, No Hx Renal Disease, No Hx Diabetes Mellitus Type 1, No Hx Diabetes Mellitus Type 2 and No Hx Polycystic Ovarian Syndrome Questionnaires Covid-19 Vaccine Questionnaire Has patient been vacinated for Covid-19 Have you been vacinated for Covid-19: No Social History Living Situation History Marital Status: Life Partner Lives With: Family Housing: House Housing Other:: Pt not working this pregnanxy. FOB named Jas is a mechanical maintenance foreman Tobacco History Smoking Status: Never smoker Second Hand Smoke Exposure: No Alcohol History Alcohol Intake: Never Substance Use History Substance Use: no Domestic Abuse History Do You Feel Safe at Home: Yes EPDS - PP Depression Screening [place] Pos[place] Depression Screen I have been able to laugh and see the funny side of things: (0) As much as I always could I have looked forward with enjoyment to things: (0) As much as I ever did I have blamed myself unnecessarily when things went wrong: (0) No, never I have been anxious or worried for no good reason: (0) No, not at all I have felt scared or panicky for no very good reason: (0) No, not at all Things have been getting on top of me: (0) No, I have been coping as well as ever I have been so unhappy that I have had difficulty sleeping: (0) No, not at all I have felt sad or miserable: (0) No, not at all I have been so unhappy that I have been crying: (0) No, never The thought of harming myself has occurred to me: (0) Never EPDS completed yes Care OB Visit Log OB Flowsheet Initial Weight: Not Recorded Date -?-?-?-?-?-?-?-?-?-?-?-?- EGA Weight BP Alb Glu CTX Pres Fundal ht FHR Mov Dilation Station Effacement Hx Notes Visit Note 07/12/24 -?-?-?-?-?-?-?--?-?-?-?-?- 15w 5d 60.895 kg 105/69 140 active 08/14/24 -?-?-?-?-?-?-?-?-?-?-?-?- 20w 3d 62.823 kg 103/66 22 135 active 09/16/24 -?-?-?-?-?-?-?-?-?-?-?-?- 25w 1d 65.034 kg 108/68 25 150 active 10/16/24 -?-?-?-?-?-?-?-?--?-?-?-?- 29w 3d 66.281 kg 103/64 30 135 active +FM, No UCs, NO LOF 10/30/24 -?-?-?-?-?-?-?-?-?-?-?-?- 31w 3d 66.338 kg 108/67 32 156 active Patient reports good movement no loss of fluids no vaginal bleeding. She reports leg cramps at night. We did discuss magnesium. 11/13/24 -?-?-?-?-?-?-?-?-?-?-?-?- 33w 3d 66.338 kg 105/67 absent cephalic 33 136 active fetus active, no PTL complaints. denies ptl s/s TDAP today, discuss FKC bid, discuss PTL precaution, hydrate, 11/27/24 -?-?-?-?-?-?-?-?-?-?-?-?- 35w 3d 66.905 kg 107/72 occasional cephalic 35 147 active No CTX/LOF/VB, reports occasional cramps consistent with Rui Ibanez, good FM. FHR 147, cephalic presentation. Plan: fol low-up in 1 week with Tamia, schedule GBS swab at 36 weeks, weekly visits to continue, future appt with Dr. Hassan in ~2 weeks. 12/05/24 -?-?-?-?-?-?-?-?-?-?-?-?- 36w 4d 66.678 kg 111/73 occasional cephalic 36 145 active 0 -3 35 increased BH. no VB, no LOF, fetus active,pressure, SVE: L/C/P soft GBS today, discuss labor precaution, fkc bid, discuss ER precaution. rtc 1 week obc 12/11/24 -?-?-?-?-?--?-?-?-?-?-?-?- 37w 3d 67.642 kg 116/72 occasional cephalic 37 145 active increased pressure, fetus active, no leaking or bleeding. discuss GBS, discuss labor precaution, fkc bid, hydrate. continue PNV. rtc 1 week obc 12/18/24 -?-?-?-?-?-?-?-?-?-?-?-?- 38w 3d 68.663 kg 101/66 occasional cephalic 38 143 active 0 -1 80 good movement no loss of fluids no vaginal bleeding Discussed labor. Discussed epidural. Patient will go to [place] as far as pain medicine go. She is not currently with the father the baby. She will have a friend and a sister in labor with her. No physical or verbal abuse 12/30/24 -?-?-?-?-?-?-?-?-?-?-?-?- 40w 1d 61.235 kg 118/79 KEITH Calculator Estimated Delivery Date Method Current WG Current Estimate 12/29/24 Ultrasound #1 40w 1d Other Estimates 12/28/24 LMP (Uncertain) 40w 2d Expected Delivery Route/Plan G1, P0 Anticipate care labs from 08/26/24 O+/antibody negative/ hepatitis B surface antigen negative /GC chlamydia negative/ rubella immune /RPR nonreactive /HIV negative group B strep negative 1 hour glucose 105. Has emesis patient was 10 mg Specific Issue/Plans labs and NIPT results reviewed with the patient. NIPT normal XX female. Structural survey ultrasound ordered. Notes Visit Date: 12/18/24 Last Updated by: Valentina Hassan ([facility])MD EFW by [facility] 7 pounds at due date Visit Date: 12/11/24 Last Updated by: Tamia Burleson CNM GBS- Visit Date: 12/05/24 Last Updated by: Tamia Burleson CNM OB panel: O+,abs-, rpr;;nr, rub imm, hbsag-,hiv-, HC-, GC/CT-, UT-, 1 hr gtt normal Visit Date: 11/27/24 Last Updated by: Gama Rucker MD - heart rate: 147 bpm (normal) - Ultrasound: - position: Cephalic presentation (head down) - sex: Female - Placenta: Normal - Amniotic fluid: Normal - Umbilical cord: Visualized Visit Date: 11/13/24 Last Updated by: Tamia Burleson CNM 24 yo . LMP 03/23/24. EDC 12/28/25. O+,abs-, rpr;;nr, rub imm, HBSAG-,hiv-,GC/CT-. NIPT-, 1 hr gtt normal Visit Date: 10/16/24 Last Updated by: Valentina Hassan ([facility])MD GCT 105 Visit Date: 09/16/24 Last Updated by: Valentina Hassan ([facility])MD Pt needs one hour GCT HPI Interval History: 24 yo for 1 week pp. vaginal delivery 12/22/24, baby girl. 6lb. breast and bottle. happy, no depression, family supportive. FOB not involved. unsure about control. vaginal septum noted at . RML repaired. spinal headache Delivery type: vaginal Was labor induced: no Gestational age at delivery (weeks): 37 Delivery date: 12/22/24 Delivering provider: [place] Delivery complications: No Delivery complications comment: anemia, spinal head ache. resulted in ER visit. 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 Lungs clear no wheezes. Abdomen is soft nontender. Uterus well involuted. Perineum is intact no lacerations. No swelling. Small lochia. Negative Homans' sign. 2+ DTRs. No edema no swelling. Breasts are soft General Limitations: no limitations General Appearance: alert, in no apparent distress, comfortable, cooperative, healthy appearing, well developed and well groomed Head Head exam: atraumatic, normocephalic and normal inspection ENT ENT exam: Present normal exam, normal oropharynx and mucous membranes moist Resp Respiratory exam: Present normal lung sounds bilaterally Card Cardiovascular exam: Present regular rate, normal rhythm and normal heart sounds Psych Psychiatric exam: Present normal affect and normal mood Office Procedures OB Clinic LOC & Office Proc's Nursing/Assessment Patient Status: Established Patient OB Clinic Nursing Assessment: Medication Reconciliation, Update PMH in EMR and Vital Signs OB Clinic Coordination of Care: Complex Care and Chronic Disease 1-5, Consent,records obtained, informed consent, Education Simp Pt/Fam and Staff c larify orders Established Patient Charge Established Patient Point Assignment: 85 Antepartum Initial or Follow-up Antepartum Initial Visit: Yes Assessment & Plan Diagnosis / Problem List (1) 2 weeks follow-up: Status: Acute Care Reviewed delivery summary and any complications: Yes Uterus involuted to: 3 u below Perineal / incision healing noted: Yes Screened for depression: Yes Depression counseling provided: No Discussed family planning & contraception: Yes Contraception planned: unsure Counseling on safe resumption of sexual activity: Yes Counseling on gradual excercise: Yes Discussed and concerns (describe), provided support: Yes Referred to sales merchandising specialist: No Counseled on good nutrition, hydration, and self care: Yes Reviewed vaccine status: No Chronic & current problems reconciled on problem list: Yes Infant care discussed; questions answered: feeding Follow up: routine/prn (continue sitz bath and comfort measure for perineal laceration. no sex. continue PNV,rest, fluid, RTC Er for continued headache. comfort measure discussed for spinal headache)
== END 2024-12-30 10:55 | disposition home or self-care (01) ==
LOC: HODSOBC 10:20
PROVIDERS: Supervising Provider Advanced Practice Midwife; Visit Provider Advanced Practice Midwife
DX: Z39.2 Encounter for routine postpartum follow-up (principal); Z39.1 Encounter for care and examination of lactating mother
CPT/HCPCS: 59425; 99213; Z1038; G0463